=== PATIENT | female | born 1950 | race Caucasian/White ===

== ENCOUNTER 2024-01-15 17:32 | Inpatient (IN) | payer MEDICARE, SELFPAY ==
[2024-01-15] VITALS (8 sets, daily range): BP systolic 92–171; BP diastolic 62–97; PULSE 96–131; RESP 14–19; TEMP 36.5–36.9; O2SAT 93–96; BMI 29.5; BMI 25.9
--- NOTE | 2024-01-15 18:03 | CT_ITS ---
PROCEDURE INFORMATION: Exam: CT Head Without Contrast Exam date and time: 01/15/2024 6:19 PM Age: 73 years old Clinical indication: Altered mental status/memory loss; Additional info: AMS, no focal deficits TECHNIQUE: Imaging protocol: Computed tomography of the head without contrast. Radiation optimization: All CT scans at this facility use at least one of these dose optimization techniques: automated exposure control; mA and/or kV adjustment per patient size (includes targeted exams where dose is matched to clinical indication); or iterative reconstruction. COMPARISON: No relevant prior studies available. FINDINGS: Brain: Moderate generalized cerebral atrophy. Diffuse periventricular white matter hypoattenuation compatible with chronic microvascular ischemic changes. No intracranial mass, hemorrhage or evidence of acute ischemia. Cerebral ventricles: Mild ventriculomegaly appears in proportion to the degree of cerebral atrophy. Ventricles appear clear. Paranasal sinuses: Visualized sinuses are unremarkable. No fluid levels. Mastoid air cells: Visualized mastoid air cells are well aerated. Bones/joints: Unremarkable. No acute fracture. Soft tissues: Unremarkable. IMPRESSION: No acute intracranial abnormality evident. Chronic appearing changes as noted
--- NOTE | 2024-01-15 18:06 | ED_ITS ---
Discharge Plan Disposition Chief Complaint: PAIN Referrals Follow up/Referrals: Provider,Referral, [Primary Care Provider] - See instructions Clinical Impressions Clinical Impression: Altered mental status, Urinary incontinence, Skin ulcer of buttock, limited to breakdown of skin, Elevated lipase, Debility, Acute UTI, Calcification of coronary artery Discharge ED Provider: Zuleyka Hawley General Adult HPI General Chief complaint: PAIN Stated complaint: Pressure sores Time Seen by Provider: 01/15/24 17:36 History of Present Illness HPI narrative: This patient is a 73-year-old female with unknown past medical history at this time presenting with concern that family found her living in deplorable conditions. According to [facility] who brought the patient in, the patient has been reportedly living in a camper without running water or electricity for the last 5 months. Family came and found her stuck to the blankets that she was lying on in bed with a lot of wounds to her buttocks and perineal region. She had been incontinent of urine on herself. Patient does not contribute much to history, as she is altered. She is only oriented to person and place but not time or situation. She states that she is having some pain in her butt where the wounds are but denies any other concerns or complaints at this time. She states she is not really sure why she is here. Family has not yet arrived. Related Data Allergies Allergy/AdvReac Type Severity Reaction Status Date / Time Unable to Assess Allergy Verified 01/15/24 18:26 [facility] Disclaimer: The information contained in this section may have been updated after the patient was seen, as this information can be updated by other users. Medical History Dementia Polio Diabetes mellitus, type 2 Social History Smoking Status: Never smoker alcohol intake: never current occupational status: retired Travel in the last 8 weeks: None ROS Obtained: Yes All systems reviewed & no additional complaints except as documented Physical Exam General General appearance: alert and in no apparent distress Comment: Wrapped in multiple blankets that are seemingly stuck to open wounds on her gluteal region. Blankets are soaked in urine. Hair appears unwashed for a long period of time Head Head exam: atraumatic and normocephalic Eye Eye exam: Present normal appearance, PERRL and EOMI ENT ENT exam: Present normal exam, normal oropharynx, mucous membranes moist and normal external ear exam Neck Neck exam: Present normal inspection, full ROM and trachea midline; Absent tenderness Chest Chest inspection: Present normal inspection and symmetric chest wall rise; Absent tenderness Respiratory Respiratory exam: Present normal lung sounds bilaterally; Absent respiratory distress, wheezes, stridor or accessory muscle use Cardiovascular Cardiovascular exam: Present normal rhythm and tachycardia Abdominal Exam Abdominal exam: Present tenderness (Suprapubic) and other (Palpable bladder distention with tenderness of the bladder in the suprapubic region); Absent distention or guarding Extremities Exam Extremities exam: Present normal inspection, full ROM and normal capillary refill; Absent tenderness or edema Back Exam Back exam: Present full ROM and other (Extensive wounds and skin breakdown to the gluteal region. Patient has active areas of oozing blood from raw, irritated skin that was stuck to the blankets she was lying on. Contact irritation noted as well as stage 1 decubitus wound.); Absent tenderness Neurological Exam Neurological exam: Present alert, CN II-XII intact, normal gait and other (Generally weak without obvious focal deficit); Absent oriented X3 Psychiatric Psychiatric exam: Present flat affect Skin Skin exam: Present warm and dry Medical Decision Making Medical Records Medical records reviewed: Yes I reviewed the patient's medical records. Nikolai Inquiry Pt receiving controlled substance: No Vital Signs: 01/15/24 17:34 01/15/24 18:31 Temperature 98.2 F Temperature Source Oral Pulse Rate 131 H Pulse Rate [Left Radial] 130 H Respiratory Rate 18 Blood Pressure 92/74 L Blood Pressure [Right Arm] 171/97 H Blood Pressure Mean [Right Arm] 121 Blood Pressure Source [Right Arm] Automatic Cuff Blood Pressure Position [Right Arm] Sitting 02 Sat by Pulse Oximetry 95 96 Oxygen Delivery Method Room Air Room Air Lab Data Lab results reviewed: Yes I reviewed the patient's lab results. Lab Results 01/15/24 18:03: Urine Color Yellow, Urine Appearance Cloudy, Urine pH 6.0, Ur Specific [place] 1.015, Urine Protein 1+, Urine Glucose (UA) Negative, Urine Ketones Negative, Urine Blood 2+, Urine Nitrate Negative, Urine Bilirubin Negative, Urine Urobilinogen 0.2, Ur Leukocyte Esterase 2+ A, Urine RBC 3-5, Urine WBC Tntc, Ur Squamous Epith Cells None, Urine Bacteria Trace 01/15/24 18:13: WBC 16.2 H, RBC 5.63 H, Hgb 16.3 H, Hct 50.8 H, MCV 90.1, MCH 28.9, MCHC 32.1, RDW 13.2, Plt Count 527 H, MPV 8.2, Neut % (Auto) 83.0 H, Lymph % (Auto) 11.1, [place] % (Auto) 3.0, Eos % (Auto) 1.2, Baso % (Auto) 1.6, Neut # (Auto) 13.4 H, Lymph # (Auto) 1.8, [place] # (Auto) 0.5, Eos # (Auto) 0.2, Baso # (Auto) 0.3 H, Total Counted 100, Neutrophils % (Manual) 79 H, Lymphocytes % (Manual) 16, Monocytes % (Manual) 4, Eosinophils % (Manual) 1, Platelet Estimate Slight increase, RBC Morphology Normal, D-Dimer 2.14 H, Sodium 135 L, Potassium 3.4 L, Chloride 96 L, Carbon Dioxide 26, Anion Gap 16.4 H, BUN 30 H, Creatinine 1.00, Estimated Creat Clear 48, Estimated GFR 55 L, Est GFR ( Amer) 66, G lucose 191 H, Lactate 2.4 H, Calcium 10.0, Total Bilirubin 0.6, AST 47 H, ALT 47, Alkaline Phosphatase 142 H, Total Creatine Kinase 20 L, Troponin I < 0.01, C -Reactive Protein 156.8 H, Total Protein 10.2 H, Albumin 3.9, Globulin 6.3 H, A lbumin/Globulin Ratio 0.6 L, Lipase 604 H, Procalcitonin 0.120, TSH 1.30, T hyroxine (T4) 13.2 H 01/15/24 18:15: NT-Pro-B Natriuret Pep 963 H 01/15/24 18:41: VBG pH 7.34, VBG pCO2 48.8, VBG pO2 37.6, VBG HCO3 25.8, VBG Total CO2 27.3 H, VBG O2 Saturation 67.2, VBG Base Excess 0.0, VBG Lactic Acid 3.4 H 01/15/24 19:05: Ur Barbituates Screen Negative, Ur Amphetamines Screen Negative, U Benzodiazepines Scrn Negative 01/15/24 18:13 01/15/24 18:13 Orders (Tests/Meds): ED MEDICATIONS Generic Name Dose Route Start Last Admin Trade Name Freq PRN Reason Stop Dose Admin Lactated Ringer's 1,000 mls @ 999 mls/hr 01/15/24 20:31 Lactated Ringer's 1000 Ml Bag IV 01/15/24 21:31 .Q1H1M ONE Ceftriaxone Sodium 2 gm/ 100 mls @ 200 mls/hr 01/15/24 20:45 Sodium Chloride IV 01/25/24 20:44 Q24H MATILDE Sodium Chloride 10 ml 01/15/24 19:51 01/15/24 19:52 Sodium Chloride 0.9% 10ml Syr (Rad Only) IV 02/14/24 19:50 10 ml NEEDED PRN Administration Maintain IV Site Discontinued Medications Generic Name Dose Route Start Last Admin Trade Name Freq PRN Reason Stop Dose Admin Acetaminophen 1,000 mg 01/15/24 19:02 01/15/24 19:15 Acetaminophen 1,000mg/100ml Vial IV 01/15/24 19:03 1,000 mg ONCE ONE Administration Lactated Ringer's 1,000 mls @ 999 mls/hr 01/15/24 18:08 01/15/24 19:15 Lactated Ringer's 1000 Ml Bag IV 01/15/24 19:08 999 mls/hr .Q1H1M ONE Administration Iopamidol 100 ml 01/15/24 19:51 01/15/24 19:52 Iopamidol-370 (76%);100ml Bottle IV 01/15/24 19:52 100 ml ONCE ONE Administration Ketorolac Tromethamine 15 mg 01/15/24 19:02 01/15/24 19:15 Ketorolac 30mg/Ml Vial IV 01/15/24 19:03 15 mg ONCE ONE Administration Sodium Chloride 50 ml 01/15/24 19:51 01/15/24 19:52 0.9 % Sodium Chloride 50 Ml Vial IV 01/15/24 19:52 50 ml ONCE ONE Administration ORDERS Category Date Time Status CT abdomen pelvis w con Stat Cat Scan 01/15/24 18:[address] angio chest PE protocol Stat Cat Scan 01/15/24 18:[address] head/brain wo con Stat Cat Scan 01/15/24 18:03 Completed CXR --portable [XR chest portable] Stat Exams 01/15/24 18:30 Completed Ammonia Stat Lab 01/15/24 18:03 Ordered BNP [Brain Natriuretic Peptide] Stat Lab 01/15/24 18:15 Completed C-Reactive Protein Stat Lab 01/15/24 18:13 Completed Complete Blood Count Auto Diff Stat Lab 01/15/24 18:13 Completed Comprehensive Metabolic Panel Stat Lab 01/15/24 18:13 Completed Creatine Kinase Stat Lab 01/15/24 18:13 Completed D-Dimer Stat Lab 01/15/24 18:13 Completed Lactic Acid Stat Lab 01/15/24 18:13 Completed Lipase Stat Lab 01/15/24 18:13 Completed Procalcitonin Stat Lab 01/15/24 18:13 Completed T4 (Thyroxine) Stat Lab 01/15/24 18:13 Completed Thyroid Stimulating Hormone Stat Lab 01/15/24 18:13 Completed Troponin I Q3H Lab 01/15/24 21:15 Ordered Troponin I Q3H Lab 01/16/24 00:15 Ordered Troponin I Stat Lab 01/15/24 18:13 Completed UDS [Drug Screen,Urine] Stat Lab 01/15/24 19:05 Results Urinalysis and Microscopic Stat Lab 01/15/24 18:03 Completed Blood Culture Stat Micro 01/15/24 18:15 Received Urine Culture Stat Micro 01/15/24 18:03 Received Venous Blood Gas Stat RT 01/15/24 18:41 Completed ECG Data Tracing #1: I reviewed this ECG and interpreted as documented below: Sinus tachycardia with a ventricular rate of [address]/T wave abnormality, however no acute ST elevations concerning for STEMI. ECG initial impression date: 01/15/24 ECG initial impression time: 18:47 Medical Decision Narrative: In summary, this patient is a 73-year-old female presenting to the Emergency Department for evaluation of gluteal wounds and with concern that she was stuck to the blankets she was lying on. Family found her living in deplorable conditions. Patient is altered and does not contribute much to history. Differential diagnoses considered include but are not limited to urinary tract infection, ELKE, general debility, rhabdomyolysis, renal failure, starvation, electrolyte derangements, among many other things at this time, his differential is very broad. Ruling out the most morbid conditions drove assessment. On exam, the patient is in no acute distress, though she appears disheveled wrapped in many blankets that are soaked in urine and stuck to her buttocks. She has a distended palpable bladder with associated tenderness as well as multiple wounds on her gluteal region and contact irritation/skin breakdown from presumed chronic saturation with urine. Workup included very broad lab evaluation including infectious and metabolic workup. CT scan of the head without contrast, chest x-ray, and EKG were also ordered in addition to this broad lab assessment. Bolus of IV fluids was initiated, as the patient is tachycardic and appears clinically dry on exam. She was given IV Tylenol and Toradol for pain related to her wounds. Family arrives and notes that the patient had been living in another town and they thought that her brother was taking care of her, however they recently found that her brother had not been taking care of her, and instead the patient been living on her own with mom's children next-door coming to check on her occasionally. They noted that they moved the patient down to [place] to be with them on Friday, and they noted that since then, she has been peeing on herself and has been complaining of buttock pain. They today noted for the first time that she has extensive wounds to her gluteal region. Given this, they brought her in for evaluation. They state they are unsure what her baseline is, as they had not been around her for a long time. They also note that they do not know what her medical problems are what medications she takes, as they have been trying to get a hold of pharmacies and her old primary care provider for information. Labs were obtained that were concerning for urinary tract infection, and patient also does have a leukocytosis. She appears clinically dry based on labs with mildly elevated anion gap and CO2. She also has elevated inflammatory markers. At this time, I am concerned for sepsis secondary to urinary tract infection. Sepsis bolus of IV fluids was administered with 2 L bolus of IV fluids. I independently interpreted CT scan prior to the radiologist read and noted grossly distended bladder with hydronephrosis bilaterally despite Montesinos catheter placement. Please see their read for final interpretation. Patient also has coronary calcifications, which were made noted. Lipase is mildly elevated, but she does not have abdominal pain or tenderness. Montesinos catheter was adjusted and flushed with grossly purulent drainage. She had a large chunk of purulent material that was blocking the Montesinos catheter which was able to be removed. After this, she had increased UOP. She initially had only 200cc urine out, but after flushing, she had around 1100cc out. Patient was started on IV Rocephin with concerns for urinary tract infection. At this time, given her complex social situation, wounds, general debility, and significant urinary tract infection, I feel she would benefit from admission for further evaluation and management. I called and had an interactive discussion with the hospitalist who admitted the patient in stable condition. Critical Care Critical Care Time Critical Care Time: No
--- NOTE | 2024-01-15 18:30 | XR_ITS ---
PROCEDURE INFORMATION: Exam: XR Chest Exam date and time: 01/15/2024 6:33 PM Age: 73 years old Clinical indication: Other: AMS TECHNIQUE: Imaging protocol: Radiologic exam of the chest. Views: 1 view. COMPARISON: No relevant prior studies available. FINDINGS: Tubes, catheters and devices: Right-sided neck surgical clips. Lungs: Stigmata of old granulomatous disease. Right lower lung opacities are nonspecific. There is mild architectural distortion of the right lung likely related to chronic scarring. Pleural spaces: Unremarkable. No pleural effusion. No pneumothorax. Heart/Mediastinum: Coronary artery calcifications. Vasculature: Vascular calcifications. Bones/joints: Chronic left clavicular fracture. Old left rib fractures. IMPRESSION: Right lower lung opacities are nonspecific. Please correlate for evidence of atypical infection or aspiration. Recommend 6 week follow-up standing PA and lateral chest radiographs.
[2024-01-15 18:32] LABS: Basophils # 0.3 K/mm3 (0-0.2); Basophils % 1.6 % (0.1-2.0); Eosinophils # 0.2 K/mm3 (0.0-0.4); Eosinophils % 1.2 % (0.1-12.0); Hematocrit 50.8 % (37.0-47.0); Hemoglobin 16.3 g/dL (12.2-16.2); Lymphocytes # 1.8 K/mm3 (0.7-4.5); Lymphocytes % 11.1 % (10-50); MANUAL DIFFERENTIAL MANUAL DIFFERENTIAL (MANUAL DIFF); Mean Corpuscular HGB Conc 32.1 g/dL (31.8-35.4); Mean Corpuscular Hemoglobin 28.9 pg (27.0-31.2); Mean Corpuscular Volume 90.1 fl (81-99); Mean Platelet Volume 8.2 fl (7.4-10.4); Monocytes # 0.5 K/mm3 (0.1-1.0); Neutrophils # 13.4 K/mm3 (1.8-7.8); Platelet Count 527 K/mm3 (142-424); Red Blood Count 5.63 M/mm3 (4.20-5.40); Red Cell Distribution Width 13.2 % (11.5-17.5); White Blood Count 16.2 K/mm3 (4.8-10.8)
[2024-01-15 18:40] LABS: D-Dimer 2.14 ug/mL (0.0-0.5)
--- NOTE | 2024-01-15 18:44 | ECG_ITS ---
APPROVED REPORT Exam: Resting ECG HR:125 bpm ECG Measurements Heart Rate 125 AXES OH 157 P 95 QRSd 82 QRS 51 QT 400 T 74 QTc 474 Conclusion SINUS TACHYCARDIA NONSPECIFIC ST & T-WAVE ABNORMALITY Electronically signed by : CARLEE GRIMES, 01/15/2024 21:51:06
--- NOTE | 2024-01-15 18:53 | CT_ITS ---
PROCEDURE INFORMATION: Exam: CTA Chest With Contrast Exam date and time: 01/15/2024 7:46 PM Age: 73 years old Clinical indication: Abnormal findings; Other: Elevated d-dimer; Additional info: Tachy, elevated d-dimer, AMS TECHNIQUE: Imaging protocol: Computed tomographic angiography of the chest with contrast. Exam focused on the arteries. 3D rendering (Not supervised by radiologist): MIP and/or 3D reconstructed images were created by the technologist. Radiation optimization: All CT scans at this facility use at least one of these dose optimization techniques: automated exposure control; mA and/or kV adjustment per patient size (includes targeted exams where dose is matched to clinical indication); or iterative reconstruction. Contrast material: ISOVUE; Contrast volume: 100 ml; Contrast route: INTRAVENOUS (IV); COMPARISON: CR XR CHEST PORTABLE 15/01/2024 18:33 FINDINGS: Pulmonary arteries: No pulmonary emboli. Great vessels off aortic arch: Abberant right subclavian artery, which is chronically thrombosed. The right subclavian artery reconstitutes due to a patent bypass graft from the right common carotid artery. Aorta: The aorta demonstrates severe atherosclerotic disease. Other arteries: The left vertebral artery is dominant. Lungs: [id number] centrilobular emphysema. Bilateral apical scarring. Mild scarring and atelectasis in the lower lungs. Pleural spaces: Unremarkable. No pneumothorax. No pleural effusion. Heart: Unremarkable. No cardiomegaly. No pericardial effusion. Coronary arteries: Moderate to severe coronary arterial calcification, indicating the presence of coronary artery disease. Lymph nodes: Unremarkable. No enlarged lymph nodes. Bones/joints: Old left rib fractures. Old left clavicular fracture. Soft tissues: Unremarkable. Other findings: Stigmata of old granulomatous disease. Please see separate report for abdomen/pelvis. IMPRESSION: 1. No pulmonary emboli. 2. Moderate to severe coronary arterial calcification, indicating the presence of coronary artery disease. If the patient has associated symptoms, recommend management as per chest pain guidelines. If the patient is asymptomatic, consider reviewing modifiable cardiovascular risk factors and managing as per guidelines for primary prevention. COMMENTS: The presence of pulmonary emphysema on CT is an independent risk factor for lung cancer. In the absence of a history or active diagnosis of lung cancer, it is recommended that this patient with emphysema be evaluated for enrollment in a low dose CT lung cancer screening program.
--- NOTE | 2024-01-15 18:53 | CT_ITS ---
PROCEDURE INFORMATION: Exam: CT Abdomen And Pelvis With Contrast Exam date and time: 01/15/2024 7:46 PM Age: 73 years old Clinical indication: Other: Tachy, elevated d-dimer; Additional info: Tachy, elevated d-dimer, AMS TECHNIQUE: Imaging protocol: Computed tomography of the abdomen and pelvis with contrast. Radiation optimization: All CT scans at this facility use at least one of these dose optimization techniques: automated exposure control; mA and/or kV adjustment per patient size (includes targeted exams where dose is matched to clinical indication); or iterative reconstruction. Contrast material: ISOVUE; Contrast volume: 100 ml; Contrast route: IV; COMPARISON: CT ANGIO CHEST PE PROTOCOL 15/01/2024 19:46 FINDINGS: Tubes, catheters and devices: Urinary bladder is catheterized. There is a relatively large amount of urine in the urinary bladder. There is urinary bladder wall thickening. Liver: Mild fatty infiltration of the liver along the falciform ligament. Gallbladder and bile ducts: Gallbladder is absent. Pancreas: Normal. No ductal dilation. Spleen: Normal. No splenomegaly. Adrenal glands: Normal. No mass. Kidneys and ureters: Low attenuation renal lesions measuring up to 2.5 cm in diameter are incompletely characterized, but are likely cysts. No followup imaging is warranted. Bilateral hydronephrosis extending to the urinary bladder. Stomach and bowel: Mild sigmoid diverticulosis without diverticulitis. Appendix: Unremarkable appendix. Intraperitoneal space: Unremarkable. No free air. No significant fluid collection. Vasculature: Patent right common and external iliac arterial stents. Lymph nodes: Unremarkable. No enlarged lymph nodes. Urinary bladder: See Tubes, catheters and devices finding. Reproductive: Unremarkable as visualized. Bones/joints: Chronic L3 fracture. Soft tissues: Muscles of the right lower extremity are atrophied. Other findings: Please see separate report for CT chest. IMPRESSION: 1. Urinary bladder is catheterized. There is a relatively large amount of urine in the urinary bladder. There is urinary bladder wall thickening. Please exclude infection and confirm that the catheter is functioning properly. 2. Bilateral hydronephrosis extending to the urinary bladder. This could be due to large amount of urine in the bladder, urinary reflux, or ascending urinary tract infection. COMMENTS: Consistent with the [employer]'s Incidental Findings Committee white paper (J Am Soledad Radiol 2018): Any incidental renal lesion less than 1 cm or classified as too small to characterize, or any incidental cystic renal lesion characterized as simple-appearing, is likely benign. No follow-up imaging is recommended for these lesions per consensus recommendations based on imaging criteria.
[2024-01-15 18:56] LABS: Lactate Venous 3.4 mmol/L (0.4-2.0); VBG HCO3 25.8 mmol/L (23-30); VBG Oxygen Saturation 67.2 % (50-70); VBG PCO2 48.8 mmol/L (35-51); VBG PH 7.34 mmol/L (7.31-7.41); VBG PO2 37.6 mmol/L (28-40); VBG Total CO2 27.3 mmol/L (23-27)
[2024-01-15 19:00] LABS: Alanine Aminotransferase 47 U/L (12-78); Albumin Level 3.9 g/dl (3.5-5.0); Albumin/Globulin Ratio 0.6 (1.1-1.8); Alkaline Phosphatase 142 U/L (38-126); Anion Gap 16.4 mEq/L (5-15); Aspartate Amino Transferase 47 U/L (14-36); Bilirubin,Total 0.6 mg/dl (0.2-1.3); Carbon Dioxide 26 mmol/L (22.0-30.0); Chloride 96 mmol/L (98-107); Creatine Kinase 20 U/L (30-135); Globulin 6.3 g/dL (1.3-3.2); Glucose 191 mg/dl (74-100); Lactic Acid 2.4 mmol/L (0.7-2.1); Potassium 3.4 mmoL/L (3.5-5.1); Sodium 135 mmol/L (136-145); Total Protein,Serum 10.2 g/dl (6.3-8.2)
[2024-01-15 19:01] LABS: Lipase 604 U/L (23-300)
--- NOTE | 2024-01-15 19:03 | PC.NURSE ---
reported critical lipase of 604 to Tigist Paez
[2024-01-15 19:05] LABS: C-Reactive Protein 156.8 mg/L (0-4)
[2024-01-15 19:11] LABS: NT Pro Brain Natriuretic Pep. 963 pg/mL (0-125)
--- NOTE | 2024-01-15 19:13 | PC.NURSE ---
per son, the pt recently lived in [place] with her brother in the camper so; they've been trying to get ahold of pharmacies and doctors there to obtain medical hx and medications pt is prescribed. md aware. son states pt has been living with him since friday and he noticed the redness on her bottom today while helping her to the restroom. pt normally uses a walker or wheelchair but he has been packing her. pt has also been incontinent with him. son is unsure of her baseline.
[2024-01-15] MEDS: KETOROLAC 30MG/ML VIAL 15 MG IV (19:15)
[2024-01-15] MEDS: ACETAMINOPHEN 1,000MG/100ML VIAL 1000 MG IV (19:15)
[2024-01-15] MEDS: LACTATED RINGERS 1000ML 1,000 ML 999 ML IV (19:15)
[2024-01-15 19:20] LABS: Microscopic, Urine URINE MICROSCOPIC (MICROSCOPIC)
[2024-01-15 19:30] LABS: Appearance,Urine CLOUDY (Clear); Bilirubin,Urine Negative (Negative); Blood, Urine 2+ (Negative); Color,Urine YELLOW (Yellow); Glucose,Urine (UA) Negative (Negative); Ketones,Urine Negative (Negative); Leukocyte Esterase,Urine 2+ (Negative); Nitrate,Urine Negative (Negative); Protein,Urine 1+ (Negative); Specific Gravity, Urine 1.015 (1.005-1.030); Urobilinogen,Urine 0.2 EU/dl (0.2)
[2024-01-15 19:31] LABS: Blood Urea Nitrogen 30 mg/dl (7-17); Creatinine Clearance Estimated 48 mL/min (50-200); Estimated Glomerular Filt Rate 55 ml/min (>60); GFR (African American) 66 ML/MIN (>60)
[2024-01-15 19:39] LABS: Eosinophils % 1 % (0-3); Lymphocytes % 16 % (10-50); Monocytes % 4 % (2-9); Neutrophils % 79 % (42-76); Platelet Estimate Slight Increase; RBC Morphology Normal; Total Cells Counted 100
[2024-01-15 19:45] LABS: Troponin I < 0.01 ng/ml (0.00-0.034)
[2024-01-15 19:49] LABS: T4 (Thyroxine) 13.2 ug/dl (5.53-11.0)
[2024-01-15] MEDS: SODIUM CHLORIDE 0.9% 10ML SYR (RAD ONLY) 10 ML IV (19:52)
[2024-01-15] MEDS: 0.9 % SODIUM CHLORIDE 50 ML VIAL IV (19:52)
[2024-01-15] MEDS: IOPAMIDOL-370 (76%);100ML BOTTLE 100 ML IV (19:52)
[2024-01-15 20:00] LABS: Bacteria,Urine Trace /lpf; WBC,Urine TNTC #/hpf (0-3)
[2024-01-15 20:02] LABS: Barbiturates Screen,Urine Negative ng/ml (<200)
[2024-01-15 20:03] LABS: Amphetamine/Metha Screen,Urine Negative ng/ml (<1000); Benzodiazepines Screen,Urine Negative ng/ml (<200)
--- NOTE | 2024-01-15 20:38 | PC.NURSE ---
pt's CT showed urine in the bladder even though pt had a zaragoza catheter. Catheter assessed and found to be slightly kinked but when fixed did not have much improvement in output. Catheter was then flushed with sterile water and white, thick urine with large sediment started to flow through the tube; yellow clear urine was in the urine bag. UA obtained per MD order; additional 900 mL of urine now in bag.
--- NOTE | 2024-01-15 20:40 | PC.NURSE ---
called warehouse operator for bed
--- NOTE | 2024-01-15 20:40 | PC.NURSE ---
OBSERVATION ADMISSION TO 210 WITH DX OF UTI, SACRAL WOUND AND WEAKNESS TO SERVICE OF THE HOSPITALIST.
[2024-01-15 20:46] LABS: Opiate Screen,Urine Negative ng/ml (<300)
--- NOTE | 2024-01-15 20:46 | EXP.HP ---
History of Present Illness *Admission Date: 01/15/24 *Reason for visit:: AMS/ UTI *History of present illness: This is a 73-year-old female with apparently PMHx of HTN, CAD on plavix, questionable diabetes, dementia. unknown baseline, at this time was brought in by EMS with concern that was found by family found living in deplorable conditions. patient is alert to person only, poor historian and does not seems to be aware of situations. History obtained by chart review, ED documentation and EMS report. According to [facility] who brought the patient in, the patient has been reportedly living in a camper without running water or electricity for the last 5 months. Family came and found her stuck to the blankets that she was lying on in bed with a lot of wounds to her buttocks and perineal region. She had been incontinent of urine on herself. She is only oriented to person and place but not time or situation. She states that she is having some pain in her bottom where the wounds are but denies any other concerns or complaints at this time. She states she is not really sure why she is here. Family has not yet arrived. Admitted for further treatment and management. [facility] Disclaimer: The information contained in this section may have been updated after the patient was seen, as this information can be updated by other users. Medical History Dementia Polio Diabetes mellitus, type 2 Social History (Updated 01/15/24 @ 20:39 by Zuleyka Hawley DO) Smoking Status: Never smoker alcohol intake: never current occupational status: retired Travel in the last 8 weeks: None Review of Systems Review of Systems Review of systems:: unable to obtain Meds Home Medications and Allergies Home Medications Medication Instructions Recorded Confirmed Type atorvastatin 80 mg tablet 80 mg PO DAILY Cholesterol 01/16/24 01/16/24 History clopidogrel 75 mg tablet 75 mg PO DAILY Platelet Inhibitor 01/16/24 01/16/24 History donepezil 5 mg tablet 5 mg PO HS Memory 01/16/24 01/16/24 History glimepiride 4 mg tablet 4 mg PO BID Diabetes 01/16/24 01/16/24 History isosorbide mononitrate 60 mg 60 mg PO DAILY High Blood Pressure 01/16/24 01/16/24 History tablet,extended release 24 hr losartan 100 mg tablet 100 mg PO DAILY High Blood Pressure 01/16/24 01/16/24 History metoprolol succinate 100 mg 100 mg PO DAILY High Blood Pressure 01/16/24 01/16/24 History tablet,extended release 24 hr New Prescriptions to Start Prescriptions: Allergies Allergy/AdvReac Type Severity Reaction Status Date / Time Unable to Assess Allergy Verified 01/15/24 18:26 Exam Data for Last 24 hours Vital signs and Labs for Last 24 Hours: Temp Pulse Resp BP Pulse Ox O2 Del Method 98.2 F 103 H 19 170/73 H 96 Room Air 01/15/24 17:34 01/15/24 20:30 01/15/24 20:30 01/15/24 20:30 01/15/24 20:30 01/15/24 20:30 Laboratory Results - last 24 hr 01/15/24 18:03: Urine Color Yellow, Urine Appearance Cloudy, Urine pH 6.0, Ur Specific [place] 1.015, Urine Protein 1+, Urine Glucose (UA) Negative, Urine Ketones Negative, Urine Blood 2+, Urine Nitrate Negative, Urine Bilirubin Negative, Urine Urobilinogen 0.2, Ur Leukocyte Esterase 2+ A, Urine RBC 3-5, Urine WBC Tntc, Ur Squamous Epith Cells None, Urine Bacteria Trace 01/15/24 18:13: WBC 16.2 H, RBC 5.63 H, Hgb 16.3 H, Hct 50.8 H, MCV 90.1, MCH 28.9, MCHC 32.1, RDW 13.2, Plt Count 527 H, MPV 8.2, Neut % (Auto) 83.0 H, Lymph % (Auto) 11.1, [place] % (Auto) 3.0, Eos % (Auto) 1.2, Baso % (Auto) 1.6, Neut # (Auto) 13.4 H, Lymph # (Auto) 1.8, [place] # (Auto) 0.5, Eos # (Auto) 0.2, Baso # (Auto) 0.3 H, Total Counted 100, Neutrophils % (Manual) 79 H, Lymphocytes % (Manual) 16, Monocytes % (Manual) 4, Eosinophils % (Manual) 1, Platelet Estimate Slight increase, RBC Morphology Normal, D-Dimer 2.14 H, Sodium 135 L, Potassium 3.4 L, Chloride 96 L, Carbon Dioxide 26, Anion Gap 16.4 H, BUN 30 H, Creatinine 1.00, Estimated Creat Clear 48, Estimated GFR 55 L, Est GFR ( Amer) 66, Glucose 191 H, Lactate 2.4 H, Calcium 10.0, Total Bilirubin 0.6, AST 47 H, ALT 47, Alkaline Phosphatase 142 H, Total Creatine Kinase 20 L, Troponin I < 0.01, C-Reactive Protein 156.8 H, Total Protein 10.2 H, Albumin 3.9, Globulin 6.3 H, Albumin/Globulin Ratio 0.6 L, Lipase 604 H, Procalcitonin 0.120, TSH 1.30, Thyroxine (T4) 13.2 H 01/15/24 18:15: NT-Pro-B Natriuret Pep 963 H 01/15/24 18:41: VBG pH 7.34, VBG pCO2 48.8, VBG pO2 37.6, VBG HCO3 25.8, VBG Total CO2 27.3 H, VBG O2 Saturation 67.2, VBG Base Excess 0.0, VBG Lactic Acid 3.4 H 01/15/24 19:05: Ur Barbituates Screen Negative, Ur Amphetamines Screen Negative, U Benzodiazepines Scrn Negative I & O for Last 24 hours: Intake & Output 01/12/24 01/13/24 01/14/24 01/15/24 23:59 23:59 23:59 23:59 Weight 59.874 kg Constitutional Constitutional: chronically ill appearing and somnolent *Routine HEENT Exam Head: Present normocephalic Eye: Present EOMI and PERRL ENT: Present mucous membranes moist *Routine Neck Exam Neck: Present supple; Absent lymphadenopathy *Routine Respiratory Exam Respiratory: Present decreased breath sounds, CTA bilaterally and symmetric chest movement *Routine Cardiovascular Exam Cardiovascular: Present RRR, Normal S1, Normal S2 and tachycardia *Routine Abdominal Exam Abdominal: Present soft and normoactive bowel sounds; Absent tenderness *Routine Rectal Exam Rectal:: deferred *Routine Genitalia Exam Genitalia:: deferred *Routine Extremities Exam Extremities: Absent cyanosis, clubbing or edema *Routine Skin Exam Skin: Present warm, wounds and rash Comments: sacral pressure/moisture associated wound. *Routine Neurological Exam Neurological: Present alert and altered mental status Routine Psychiatric Exam Psychiatric: Present unable to assess Assessment and Plan *Assessment and plan (1) Sepsis without acute organ dysfunction: Status: Acute Qualifiers: Sepsis type: sepsis due to unspecified organism Qualified Code(s): A41.9 - Sepsis, unspecified organism Category: Medical Code(s): A41.9 - Sepsis, unspecified organism (2) Acute UTI: Status: Acute Category: Medical Code(s): N39.0 - Urinary tract infection, site not specified (3) Altered mental status: Status: Acute Qualifiers: Altered mental status type: disorientation Qualified Code(s): R41.0 - Disorientation, unspecified Category: Medical Code(s): R41.82 - Altered mental status, unspecified (4) Dementia: Status: Acute Qualifiers: Dementia behavioral or psychological symptom: unspecified whether behavioral, psychotic, or mood disturbance or anxiety Dementia severity: unspecified severity Dementia type: unspecified type Qualified Code(s): F03.90 - Unspecified dementia, unspecified severity, without behavioral disturbance, psychotic disturbance, mood disturbance, and anxiety Category: Medical Code(s): F03.90 - Unspecified dementia, unspecified severity, without behavioral disturbance, psychotic disturbance, mood disturbance, and anxiety (5) Dehydration: Status: Acute Category: Medical Code(s): E86.0 - Dehydration (6) Calcification of coronary artery: Status: Acute Category: Medical Code(s): I25.10 - Atherosclerotic heart disease of [place] coronary artery without angina pectoris; I25.84 - Coronary atherosclerosis due to calcified coronary lesion (7) Diabetes mellitus, type 2: Status: Acute Qualifiers: Diabetes mellitus complication status: with other specified complication Diabetes mellitus alf insulin use: without 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 oil 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 use Qualified Code(s): E11.69 - Type 2 diabetes mellitus with other specified complication Category: Medical Code(s): E11.9 - Type 2 diabetes mellitus without complications (8) Dermatitis associated with moisture from urinary incontinence: Status: Acute Category: Medical Code(s): L25.8 - Unspecified contact dermatitis due to other agents; R32 - Unspecified urinary incontinence (9) Skin ulcer of buttock, limited to breakdown of skin: Status: Acute Category: Medical Code(s): L98.411 - 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 unknown baseline, at this time was brought in by EMS with concern that was found by family found living in deplorable conditions. Initial work up included CT of head chest and abdomen. PEs has been ruled out. there is a significant bilateral hydronephrosis. with bladder wall thickness Concerned for UTI. labs are consistent with leukocytosis, reinforcing UTI diagnosis. initial sepsis work up initiated. presenting with pressure/ moisture associated wounds. Findings discussed with ED provider for admission. Medicine decided to admit for further management. Plan as follow: -Sepsis without acute organ dysfunction, secondary to urinary tract infection with bilateral hydronephrosis: Admit patient for medical services. Dispo MedSurg Start continuous monitoring per unit. Vital signs per unit protocol Started on ceftriaxone IV 1 g every 24. Urinary culture pending CT of the abdomen reviewed Monitor labs -Monitor mental status, in the setting of history of dementia, unknown baseline, Dehydration: Continue IV resuscitation. Monitor for electrolyte imbalance Potassium replaced by protocol Monitor CMP in the morning Keep n.p.o.. Advance diet as mentation improves. Nursing to assess bedside swallow -Calcification of the coronary artery disease present on the CTA Patient asymptomatic. Being on Plavix by medical chart review D-dimer elevated. Presumed not been taking medication Resume home medication Continue to monitor Troponin are negative EKGs reviewed. Nonspecific ST changes Resume atorvastatin -Apparently history of diabetes: Obtain A1c over the morning Accu-Chek before meals and as needed On insulin sliding scale Hypertension: Resume Metroprolol, isosorbide. 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 Personally examined and interviewed patient. Agree with exam findings and care plan as documented.
[2024-01-15 20:48] LABS: Methadone Screen,Urine Negative ng/ml (<300); Phencyclidine Screen,Urine Negative ng/ml (<25)
[2024-01-15] MEDS: CEFTRIAXONE SODIUM 2 GM in 0.9 % SODIUM CHLORIDE 100 ML IV (20:52)
--- NOTE | 2024-01-15 21:23 | PC.NURSE ---
report called to 2nd floor nurse
[2024-01-15 21:27] LABS: Ammonia < 9 umol/L (9-30)
[2024-01-15 21:40] LABS: Cannabinoid Screen,Urine Negative ng/ml (<50)
[2024-01-15 21:43] LABS: Cocaine Screen,Urine Negative ng/ml (<300)
--- NOTE | 2024-01-15 21:56 | PC.NURSE ---
Patient arrived to floor via stretcher from ED at 21:47.
[2024-01-15 21:57] LABS: Troponin I < 0.01 ng/ml (0.00-0.034)
[2024-01-15 22:57] LABS: Reflex Lactic Add Lactic Reflex
[2024-01-15 23:19] LABS: Lactic Acid Follow Up (RFLX 1) 1.6 mmol/L (0.7-2.1)
[2024-01-15] MEDS: PANTOPRAZOLE 40MG TABLET 40 MG PO (23:19)
[2024-01-15] MEDS: ACETAMINOPHEN 325MG TAB 650 MG PO (23:19)
[2024-01-15] MEDS: 0.9 % SODIUM CHLORIDE 1000ML 1,000 ML 50 ML IV (23:20)
[2024-01-16] VITALS: BP 111/65; PULSE 99; RESP 16; TEMP 36.9; O2SAT 95
[2024-01-16 00:48] LABS: Troponin I 0.02 ng/ml (0.00-0.034)
[2024-01-16 04:00] VITALS: BP 152/80; PULSE 84; RESP 16; TEMP 36.9; O2SAT 93; BMI 26.4
[2024-01-16] MEDS: MORPHINE 2MG/ML SYRINGE 2 MG IV ×3 (04:09→13:06)
[2024-01-16] MEDS: POTASSIUM CHLORIDE 20MEQ TAB 40 MEQ PO ×3 (06:31→20:42)
[2024-01-16] MEDS: ACETAMINOPHEN 325MG TAB 650 MG PO ×2 (06:31→13:06)
[2024-01-16 07:01] LABS: POC Glucose,Bedside 128 (70-110)
[2024-01-16 07:12] LABS: Basophils # 0.1 K/mm3 (0-0.2); Eosinophils # 0.2 K/mm3 (0.0-0.4); Hematocrit 41.6 % (37.0-47.0); Mean Corpuscular Volume 90.7 fl (81-99); Monocytes # 0.5 K/mm3 (0.1-1.0); Red Blood Count 4.59 M/mm3 (4.20-5.40)
[2024-01-16 07:14] LABS: Alanine Aminotransferase 30 U/L (12-78); Albumin/Globulin Ratio 0.6 (1.1-1.8); Alkaline Phosphatase 115 U/L (38-126); Anion Gap 10.1 mEq/L (5-15); Aspartate Amino Transferase 36 U/L (14-36); Bilirubin,Total 0.5 mg/dl (0.2-1.3); Blood Urea Nitrogen 24 mg/dl (7-17); Calcium 8.9 mg/dl (8.4-10.2); Carbon Dioxide 28 mmol/L (22.0-30.0); Chloride 101 mmol/L (98-107); Creatinine Clearance Estimated 39 mL/min (50-200); Estimated Glomerular Filt Rate 49 ml/min (>60); GFR (African American) 59 ML/MIN (>60); Globulin 4.7 g/dL (1.3-3.2); Glucose 135 mg/dl (74-100); Magnesium 1.5 mg/dl (1.6-2.3); Potassium 3.1 mmoL/L (3.5-5.1); Sodium 136 mmol/L (136-145); Total Protein,Serum 7.7 g/dl (6.3-8.2)
[2024-01-16 07:20] LABS: Basophils % 1.1 % (0.1-2.0); Eosinophils % 2.4 % (0.1-12.0); Lymphocytes % 19.7 % (10-50); Mean Corpuscular HGB Conc 31.9 g/dL (31.8-35.4); Mean Corpuscular Hemoglobin 28.9 pg (27.0-31.2); Mean Platelet Volume 8.2 fl (7.4-10.4); Monocytes % 5.1 % (1.7-9.3); Neutrophils # 7.1 K/mm3 (1.8-7.8); Neutrophils % 71.7 % (37.0-80.0); Platelet Count 423 K/mm3 (142-424); Red Cell Distribution Width 13.1 % (11.5-17.5); White Blood Count 9.9 K/mm3 (4.8-10.8)
[2024-01-16 07:24] LABS: Hemoglobin 13.3 g/dL (12.2-16.2)
--- NOTE | 2024-01-16 07:30 | PC.NURSE ---
Railroad Signal Operator spoke to Saúl WASSERMAN in regards to patients Diet order. Patient is currently NPO. Saúl CREATIVE SERVICES DIRECTOR said to advance as tolerated. Railroad Signal Operator did a bedside swallow eval. Patient was able to drink some diet pepsi and a few potato chips with no problem noted.
--- NOTE | 2024-01-16 07:39 | HMH.PHAINT1 ---
Pharmacy Intervention Comments: MEDICATION RECONCILIATION COMPLETED ON PATIENT USING EXTERNAL FILL HISTORY FROM PHARMACY. -IVETT MOSER, BRANDEND
--- NOTE | 2024-01-16 07:54 | PC.NURSE ---
Patient arrived to unit in a stretcher. Patient noted with some confusion. Patient is able to state her name and where she is. She can't answer alot of the questions, family will be in tomorrow. Machine Operator Farmworker oriented patient to room, educated patient on use of call button with a verbal voice of understanding. Full Assessment to follow.
[2024-01-16 08:00] VITALS: BP 159/70; PULSE 95; RESP 17; TEMP 36.4; O2SAT 97
[2024-01-16] MEDS: METOPROLOL SUCCINATE XL 100MG TABLET 100 MG PO (08:54)
[2024-01-16] MEDS: PANTOPRAZOLE 40MG TABLET 40 MG PO (08:54)
[2024-01-16] MEDS: ISOSORBIDE MONO 60MG TAB.ER.24H 60 MG PO (08:54)
[2024-01-16] MEDS: CLOPIDOGREL 75MG TAB 75 MG PO (08:54)
[2024-01-16] MEDS: MAGNESIUM OXIDE 400MG TABLET 400 MG PO (08:54)
[2024-01-16] MEDS: MAGNESIUM SULFATE IN WATER 2 GM/50 ML PIGGYBACK IV (08:55)
[2024-01-16 08:56] LABS: Hemoglobin A1C 9.4 % (4.0-6.0)
--- NOTE | 2024-01-16 09:43 | SW/DCPLANNER ---
Addendum entered by Idania Wilson 01/19/24 11:27: [facility] for report: phone number [phone] fax number [phone] Addendum entered by Idania Wilson 01/19/24 07:36: Per Bailey w/ [facility] this patient has been approved SNF level of care. Addendum entered by Jenny Regalado RN 01/16/24 17:08: Patient has been accepted by [facility] and pre-cert has been started per Monserrat. Original Note: I received a referral for this patient regarding discharge planning. Patient resides in a camper in [facility], brother lives nearby and checks on her daily and patient stated that she does have running water and electricity. PT/OT/wound care evaluated patient and recommended SNF level of care at time of discharge. After a lengthy discussion w/ patient she is agreeable to placement. Patient is agreeable for information to be faxed to the following facilities: [facility], [facility] and [facility]. Patient stated that she was previously independent and her plan is to return back home w/family after SNF level of care. Patient was alert/oriented and able to answer all questions appropriately. Discharge date is unknown at this time.
--- NOTE | 2024-01-16 09:45 | HMH.OTEV ---
OT Inpatient Evaluation Rehab OT IP Evaluation Start: 01/15/24 20:43 Freq: ONCE Status: Active Protocol: Document 01/16/24 09:39 LAVERNTOWNLEY (Rec: 01/16/24 09:45 [facility] [id number]) Rehab OT IP Assessment Subjective History Pt oriented x 3 on arrival. Pt agreeable to engage in therapy evaluation. Pt admitted on 01/15/24 for UTI, sacral wound, and weakness. History and physical: This is a 73-year-old female with apparently PMHx of HTN, CAD on plavix, questionable diabetes, dementia. unknown baseline, at this time was brought in by EMS with concern that was found by family found living in deplorable conditions. patient is alert to person only, poor historian and does not seems to be aware of situations. History obtained by chart review, ED documentation and EMS report. According to [facility] who brought the patient in , the patient has been reportedly living in a camper without running water or electricity for the last 5 months. Family came and found her stuck to the blankets that she was lying on in bed with a lot of wounds to her buttocks and perineal region. She had been incontinent of urine on herself. She is only oriented to person and place but not time or situation. She states that she is having some pain in her bottom where the wounds are but denies any other concerns or complaints at this time. She states she is not really sure why she is here. Family has not yet arrived. Admitted for further treatment and management Subjective I lived alone. Pt claims prior to being in the hospital she was living alone in a trailer and she was independent with all ADLs and IADLS. However, given the state she is currently in and how she was found by family this information is not trustworthy. She reprots using a cane during functional transfers. Objective Patient Orientation Person,Place,Birthday Right Upper Extremity Gross ROM Min Limitation <25% Left Upper Extremity Gross ROM Min Limitation <25% Shoulder ROM Limitations Muscle Weakness Elbow ROM Limitations Muscle Weakness Wrist Limitations of Range of Motion Muscle Weakness Bed Mobility bed mobility-scooting,bed mobility - supine/sit,bed mobility - rolling Assist Level Moderate x 2 (50% assist) Transfer Training Sit/Stand Transfer Assist Level Maximum x 2 (75% assist) Rehab OT IP prob,goals,plan Problems Date of Evaluation: 01/16/24 OT IP Problems Bed Mobility,Transfers,Balance ,Self care,Safety Rehab Potential Rehab Potential Good Equipment Needs Assistive Devices Rolling / Wheeled Walker Plan OT intervention Plan Bed Mobility,Transfers,Balance ,Self care,Safety,Therapeutic Exercise OT Plan Frequency Daily Duration LOS Discharge Goals Bed Mobility Ability Assistance x1 Sit to Stand Chair Transfer Ability Maximum x 1 (75% assist) Chair Transfer Ability Maximum x 1 (75% assist) Chair Transfer Technique Sit to/from Ambulatory Chair Transfer Assistive Devices Rolling Walker Feeding Ability Assist with Tray Set Up Lower Body Dressing Ability Maximum Assistance Upper Body Dressing Ability Minimal Assistance Bathing Ability Maximum Assistance Performing Toilet Hygiene Ability Maximum Assistance Overall Commode/Toilet Transfer Ability Maximum Assistance Commode/Toilet Transfer Technique Sit to/from Ambulatory Commode/Toilet Transfer Assistive Raised Toilet Seat,Grab Bars Devices Oral Care Assist Minimal Assistance Decrease in Endurance Yes Discharge Plan OT Discharge Plan Pt will continue to be seen for OT services while at [facility]. Pt would benefit most from short term rehab at SNF following hospital stay. Continued skilled therapy is important in order for patient to improve strength, safety, endurance, ADL independence, and functional transfers to reach [facility]. Eval Complexity Eval Charge Codes 14243 - Moderate Complexity PHYSICIAN CERTIFICATION: I certify the specified therapy services for Afshan Zaman are required, authorized, and reviewed every 30 days.
--- NOTE | 2024-01-16 09:49 | HMH.PTEV ---
Physical Therapy Evaluation Rehab PT IP Evaluation Start: 01/15/24 20:43 Freq: ONCE Status: Active Protocol: Document 01/16/24 09:39 DARIEL (Rec: 01/16/24 09:48 DARIEL [id number]) Subjective/History History History Per H&P: This is a 73-year-old female with apparently PMHx of HTN, CAD on plavix, questionable diabetes, dementia. unknown baseline, at this time was brought in by EMS with concern that was found by family found living in deplorable conditions. patient is alert to person only, poor historian and does not seems to be aware of situations. History obtained by chart review, ED documentation and EMS report. According to [facility] who brought the patient in , the patient has been reportedly living in a camper without running water or electricity for the last 5 months. Family came and found her stuck to the blankets that she was lying on in bed with a lot of wounds to her buttocks and perineal region. She had been incontinent of urine on herself. She is only oriented to person and place but not time or situation. She states that she is having some pain in her bottom where the wounds are but denies any other concerns or complaints at this time. She states she is not really sure why she is here. Family has not yet arrived. Admitted for further treatment and management. Subjective Subjective PLOF per pt report: Lives alone in trailer. IND with ADLs and mobility with intermittent use of cane. Driving short distances. New diagnosis of cancer in past 12 No months? Rehab PT IP Eval Objective Appearance Patient Behavior Appropriate Patient Orientation Person,Place Difficulty following instructions none Speech Pattern Clear Ambulation Patient Able to Ambulate No Balance Ability to Arise Unable Transfers Bed Transfer Ability Moderate x 2 (50% assist) Sit to Stand Bed Transfer Ability Maximum x 1 (75% assist) Rehab PT IP prob,goals,plan Problems Date of Evaluation: 01/16/24 PT IP Problems Bed Mobility,Transfers,Gait, Balance,Self care,Safety Rehab Potential Rehab Potential Good Equipment Needs Assistive Devices None / NA Plan PT Intervention Plan Bed Mobility,Transfers,Gait, Balance,Safety,Therapeutic Exercise Other Intervention Plan 1-2 times PT Plan Frequency Daily Duration LOS Discharge Goals Bed Transfer Ability Minimal x 1 (25% assist) Sit to Stand Chair Transfer Ability Moderate x 1 (50% assist) Discharge Plan PT Discharge Plan Pt not safe to return home at this time d/t current level of functional mobility. PT recommending short-term rehabilitation stay upon d/c from [facility]. Pt would benefit from skilled PT while at [facility] to prevent further functional decline and maximize safety with mobility. Eval Complexity Eval Charge Codes 78062 - Moderate Complexity PHYSICIAN CERTIFICATION: I certify the specified therapy services for Afshan Zaman are required, authorized, and reviewed every 30 days.
--- NOTE | 2024-01-16 10:15 | HMH.PTWOUND ---
Rehab Inpt Wound Evaluation Rehab IP Wound Evaluation Start: 01/15/24 20:43 Freq: ONCE Status: Complete Protocol: Document 01/16/24 09:52 LEENA (Rec: 01/16/24 10:02 LEENA [id number]) Rehab PT Wound Assessment Subjective Subjective 73 yowf adm to [facility] with UTI, Sepsis, and weakness. She has PMH of HTN, CAD on plavix, questionable diabetes, dementia. unknown baseline. She was found by family in bed for an extended period of time, incontinent of urine, and with no running water or electricity. She presents with significant buttock and B post LE skin irritation upon adm. Wound Buttock Wound Type MASD with pressure injury Is This a Chronic Wound Yes Wound Staging Stage II Query Text:Stage I - Unbroken, red skin, no blanching. Stage II - Skin broken, superficial skin loss involving epidermis alone or also dermis. Partial loss of skin layers. Stage III - Pressure area involves epidermis, dermis and subcutaneous tissue, full thickness skin loss. Stage IV - Pressure area involves epidermis, subcutaneous tissue, bone and other supportive tissue. Full thickness skin loss with extensive destruction of underlying tissue and structures. Wound Length (cm) 10.0 Wound Width (cm) 3.0 Wound Depth (cm) 0.1 Wound Bed Appearance [place] Surrounding Tissue Appearance Bright Red Wound Drainage Description Serous Drainage Amount Scant Wound Topical Solution/Irrigant Saline Irrigant Dressing Change Patient Tolerance Tolerated Well Plan/Recommendation Comment Currently all wounds are indistinct in nature and best course of action is to treat with a barrier cream to prevent further skin irritation. [facility] staff is performing proper pressure reluef currently. Eval Complexity Eval Charge Codes 63586 - High Complexity PHYSICIAN CERTIFICATION: I certify the specified therapy services for Afshan Zaman are required, authorized, and reviewed every 30 days.
[2024-01-16] MEDS: humaLOG 100 UNITS/ML 3ML VIAL (SSI) SQ ×2 (10:17→20:42)
[2024-01-16] MEDS: ONDANSETRON 4MG/2ML VIAL 4 MG IV (10:33)
--- NOTE | 2024-01-16 10:33 | PC.NURSE ---
emesis times one and zofran given.
[2024-01-16 10:50] LABS: POC Glucose,Bedside 233 (70-110)
[2024-01-16] MEDS: IRBESARTAN 150MG TAB 150 MG PO (13:03)
[2024-01-16 13:21] VITALS: BMI 26.4
--- NOTE | 2024-01-16 15:23 | P.PN_ITS ---
Subjective *Date: 01/16/24 *Time: 15:23 Interval history: Patient more oriented this morning. At baseline mentation. Afebrile overnight. Working with therapy. Showing response to antibiotics and improvement clinically. No nausea or vomiting. Tolerating p.o. intake. Medical Exam Vital signs and Labs for Last 24 Hours: Vital Signs Temp Pulse Pulse Resp BP BP Pulse Ox 01/16/24 14:10 01/16/24 13:16 01/16/24 12:29 01/16/24 09:42 01/16/24 09:00 01/16/24 08:00 97.5 F L 95 H 17 159/70 H 97 01/16/24 07:00 01/16/24 05:00 01/16/24 04:00 98.4 F 84 16 152/80 H 93 L 01/16/24 03:00 01/16/24 01:00 01/16/24 00:00 98.4 F 99 H 16 111/65 95 01/15/24 23:00 01/15/24 22:00 97.7 F 105 H 18 156/76 H 93 L 01/15/24 21:28 98.4 F 96 H 18 164/62 H 01/15/24 20:30 103 H 19 170/73 H 96 01/15/24 20:00 106 H 18 159/76 H 96 01/15/24 19:30 126 H 16 143/70 H 96 01/15/24 19:01 131 H 14 145/92 H 95 01/15/24 18:31 131 H 92/74 L 96 01/15/24 17:34 98.2 F 130 H 18 171/97 H 95 O2 Del Method 01/16/24 14:10 Room Air 01/16/24 13:16 Room Air 01/16/24 12:29 Room Air 01/16/24 09:42 Room Air 01/16/24 09:00 Room Air 01/16/24 08:00 Room Air 01/16/24 07:00 Room Air 01/16/24 05:00 Room Air 01/16/24 04:00 Room Air 01/16/24 03:00 Room Air 01/16/24 01:00 Room Air 01/16/24 00:00 Room Air 01/15/24 23:00 Room Air 01/15/24 22:00 Room Air 01/15/24 21:28 Room Air 01/15/24 20:30 Room Air 01/15/24 20:00 Room Air 01/15/24 19:30 Room Air 01/15/24 19:01 Room Air 01/15/24 18:31 Room Air 01/15/24 17:34 Room Air Intake and Output 01/15/24 01/16/24 01/16/24 23:59 07:59 15:59 Intake Total 0 / 1010 1010 / 1010 Output Total 1200 / 1800 900 / 900 0 / 900 Balance -1200 / -1800 -900 / 110 1010 / 110 Intake: Intake, Oral Amount 0 / 960 960 / 960 Intake, Total IV Amount 50 / 50 Magnesium Sulfate in Water 2 gm 50 / 50 In 50 ml @ 50 mls/hr IV ONCE ONE Rx#:[id number] Output: Output, Urine Amount 1200 / 1200 300 / 300 0 / 300 Output, Urine Amount (Catheter) 600 / 600 Montesinos 600 / 600 Other: Number of Voids 0 Number of Unmeasured Voids 0 0 Weight 52.345 kg 53.4 kg 53.4 kg Patient Weight 01/16/24 23:59 Weight 53.4 kg Laboratory Results - last 24 hr 01/15/24 18:03: Urine Color Yellow, Urine Appearance Cloudy, Urine pH 6.0, Ur Specific [place] 1.015, Urine Protein 1+, Urine Glucose (UA) Negative, Urine Ketones Negative, Urine Blood 2+, Urine Nitrate Negative, Urine Bilirubin Negative, Urine Urobilinogen 0.2, Ur Leukocyte Esterase 2+ A, Urine RBC 3-5, Urine WBC Tntc, Ur Squamous Epith Cells None, Urine Bacteria Trace 01/15/24 18:13: WBC 16.2 H, RBC 5.63 H, Hgb 16.3 H, Hct 50.8 H, MCV 90.1, MCH 28.9, MCHC 32.1, RDW 13.2, Plt Count 527 H, MPV 8.2, Neut % (Auto) 83.0 H, Lymph % (Auto) 11.1, [place] % (Auto) 3.0, Eos % (Auto) 1.2, Baso % (Auto) 1.6, Neut # (Auto) 13.4 H, Lymph # (Auto) 1.8, [place] # (Auto) 0.5, Eos # (Auto) 0.2, Baso # (Auto) 0.3 H, Total Counted 100, Neutrophils % (Manual) 79 H, Lymphocytes % (Manual) 16, Monocytes % (Manual) 4, Eosinophils % (Manual) 1, Platelet Estimate Slight increase, RBC Morphology Normal, D-Dimer 2.14 H, Sodium 135 L, Potassium 3.4 L, Chloride 96 L, Carbon Dioxide 26, Anion Gap 16.4 H, BUN 30 H, Creatinine 1.00, Estimated Creat Clear 48, Estimated GFR 55 L, Est GFR ( Amer) 66, Glucose 191 H, Lactate 2.4 H, Calcium 10.0, Total Bilirubin 0.6, AST 47 H, ALT 47, Alkaline Phosphatase 142 H, Total Creatine Kinase 20 L, Troponin I < 0.01, C-Reactive Protein 156.8 H, Total Protein 10.2 H, Albumin 3.9, Globulin 6.3 H, Albumin/Globulin Ratio 0.6 L, Lipase 604 H, Procalcitonin 0.120, TSH 1.30, Thyroxine (T4) 13.2 H 01/15/24 18:15: NT-Pro-B Natriuret Pep 963 H 01/15/24 18:41: VBG pH 7.34, VBG pCO2 48.8, VBG pO2 37.6, VBG HCO3 25.8, VBG Total CO2 27.3 H, VBG O2 Saturation 67.2, VBG Base Excess 0.0, VBG Lactic Acid 3.4 H 01/15/24 19:05: Urine Opiates Screen Negative, Urine Methadone Screen Negative, Ur Barbituates Screen Negative, Ur Phencyclidine Scrn Negative, Ur Amphetamines Screen Negative, U Benzodiazepines Scrn Negative, Urine Cocaine Screen Negative, U Marijuana (THC) Screen Negative 01/15/24 21:10: Ammonia < 9 L, Troponin I < 0.01 01/15/24 22:54: Lactate 1.6 01/16/24 00:15: Troponin I 0.02 01/16/24 06:30: WBC 9.9 D, RBC 4.59, Hgb 13.3 D, Hct 41.6, MCV 90.7, MCH 28.9, MCHC 31.9, RDW 13.1, Plt Count 423, MPV 8.2, Neut % (Auto) 71.7, Lymph % (Auto) 19.7, [place] % (Auto) 5.1, Eos % (Auto) 2.4, Baso % (Auto) 1.1, Neut # (Auto) 7.1, Lymph # (Auto) 2.0, [place] # (Auto) 0.5, Eos # (Auto) 0.2, Baso # (Auto) 0.1, Sodium 136, Potassium 3.1 L, Chloride 101, Carbon Dioxide 28, Anion Gap 10.1, BUN 24 H, Creatinine 1.10 H, Estimated Creat Clear 39, Estimated GFR 49 L, Est GFR ( Amer) 59, Glucose 135 H D, Hemoglobin A1c 9.4 H, Calcium 8.9, Magnesium 1.5 L, Total Bilirubin 0.5, AST 36, ALT 30 D, Alkaline Phosphatase 115, Total Protein 7.7, Albumin 3.0 L D, Globulin 4.7 H, Albumin/Globulin Ratio 0.6 L 01/16/24 06:35: POC Glucose 128 H 01/16/24 10:05: POC Glucose 233 H I & O for Labs for Last 24 Hours: Intake & Output 01/13/24 01/14/24 01/15/24 01/16/24 23:59 23:59 23:59 23:59 Intake Total 1010 / 1010 Output Total 1200 / 1800 900 / 900 Balance -1200 / -1800 110 / 110 Weight 52.345 kg 53.4 kg Constitutional: Present no acute distress, average body habitus, chronically ill appearing, disheveled and cooperative Head: Present atraumatic and normocephalic Neck: Present normal inspection Respiratory: Present normal respiratory effort; Absent rhonchi, wheezes or cr ackles Cardiac: Present Reg Rate and Rhythm GI: Present soft and normal bowel sounds; Absent distention or tenderness Comments:: Significant skin irritation on her backside Extremities: Present normal inspection, full ROM and edema (1+) Skin: Present intact, erythema and rash Neuro: Present Grossly Intact, alert, awake, oriented x 3 and moves all extremities Assessment and Plan *Assessment and plan (1) Sepsis without acute organ dysfunction: Status: Acute Qualifiers: Sepsis type: sepsis due to unspecified organism Qualified Code(s): A41.9 - Sepsis, unspecified organism Category: Medical Code(s): A41.9 - Sepsis, unspecified organism (2) Acute UTI: Status: Acute Category: Medical Code(s): N39.0 - Urinary tract infection, site not specified (3) Altered mental status: Status: Acute Qualifiers: Altered mental status type: disorientation Qualified Code(s): R41.0 - Disorientation, unspecified Category: Medical Code(s): R41.82 - Altered mental status, unspecified (4) Dementia: Status: Acute Qualifiers: Dementia type: unspecified type Dementia severity: unspecified severity Dementia behavioral or psychological symptom: unspecified whether behavioral, psychotic, or mood disturbance or anxiety Qualified Code(s): F03.90 - Unspecified dementia, unspecified severity, without behavioral disturbance, psychotic disturbance, mood disturbance, and anxiety Category: Medical Code(s): F03.90 - Unspecified dementia, unspecified severity, without behavioral disturbance, psychotic disturbance, mood disturbance, and anxiety (5) Dehydration: Status: Acute Category: Medical Code(s): E86.0 - Dehydration (6) Calcification of coronary artery: Status: Acute Category: Medical Code(s): I25.10 - Atherosclerotic heart disease of [place] coronary artery without angina pectoris; I25.84 - Coronary atherosclerosis due to calcified coronary lesion (7) Diabetes mellitus, type 2: Status: Acute 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 care use Diabetes mellitus complication status: with other specified complication Qualified Code(s): E11.69 - Type 2 diabetes mellitus with other specified complication Category: Medical Code(s): E11.9 - Type 2 diabetes mellitus without complications (8) Dermatitis associated with moisture from urinary incontinence: Status: Acute Category: Medical Code(s): L25.8 - Unspecified contact dermatitis due to other agents; R32 - Unspecified urinary incontinence (9) Skin ulcer of buttock, limited to breakdown of skin: Status: Acute Category: Medical Code(s): L98.411 - 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 unknown baseline, at this time was brought in by EMS with concern that was found by family found living in deplorable conditions. Initial work up included CT of head chest and abdomen. PEs has been ruled out. there is a significant bilateral hydronephrosis. with bladder wall thickness Concerned for UTI. labs are consistent with leukocytosis, reinforcing UTI diagnosis. initial sepsis work up initiated. presenting with pressure/ moisture associated wounds. Findings discussed with ED provider for admission. Admitted to medicine for further management. Continues to require inpatient management. Therapy recommending placement. Referred to nursing homes, will need qualifying stay. Anticipate discharge in the coming days. Problems addressed as follows: -Sepsis without acute organ dysfunction, secondary to urinary tract infection with bilateral hydronephrosis: Continue ceftriaxone IV 1 g every 24 hours Urine culture pending Heart rate still elevated, remains afebrile this morning, white cell count improved to 9.9. Repeat CBC, CMP, magnesium ordered for the morning. Montesinos in place, will consider removing tomorrow. Potassium low at 3.1. Will replace oral. Giving oral magnesium as well to promote bowel movement and correct low levels. -Calcification of the coronary artery disease present on the CTA -CAD -Hypertension Continue Plavix Continue Lipitor 80 mg nightly, continue irbesartan 150 mg daily, isosorbide 60 mg daily, metoprolol 100 mg daily History of dementia: Continue donepezil 5 mg nightly History of diabetes: -A1c 9.4. Continue sliding scale insulin with fingersticks ACHS. Will need oral regimen at discharge. 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
[2024-01-16 15:32] VITALS: BP 131/60; PULSE 55; RESP 16; TEMP 36.6; O2SAT 94
[2024-01-16] MEDS: 0.9 % SODIUM CHLORIDE 1000ML 1,000 ML 50 ML IV (16:35)
[2024-01-16 16:52] LABS: POC Glucose,Bedside 150 (70-110)
[2024-01-16 19:47] VITALS: BP 109/41; PULSE 67; RESP 18; TEMP 36.6; O2SAT 93
[2024-01-16] MEDS: ATORVASTATIN 40MG TABLET 80 MG PO (20:41)
[2024-01-16] MEDS: DONEPEZIL 5MG TAB 5 MG PO (20:41)
[2024-01-16] MEDS: CEFTRIAXONE SODIUM 2 GM in 0.9 % SODIUM CHLORIDE 100 ML IV (20:41)
[2024-01-16 21:06] LABS: POC Glucose,Bedside 252 (70-110)
[2024-01-17] VITALS: BP 119/49; PULSE 62; RESP 18; TEMP 36.7; O2SAT 93
[2024-01-17 04:00] VITALS: BP 118/66; PULSE 67; RESP 18; O2SAT 92; BMI 29.2
[2024-01-17 07:08] LABS: POC Glucose,Bedside 104 (70-110)
[2024-01-17 08:00] VITALS: BP 166/69; PULSE 77; RESP 18; TEMP 36.6; O2SAT 97
[2024-01-17] MEDS: CLOPIDOGREL 75MG TAB 75 MG PO (08:05)
[2024-01-17] MEDS: METOPROLOL SUCCINATE XL 100MG TABLET 100 MG PO (08:06)
[2024-01-17] MEDS: MAGNESIUM OXIDE 400MG TABLET 400 MG PO (08:06)
[2024-01-17] MEDS: IRBESARTAN 150MG TAB 150 MG PO (08:06)
[2024-01-17] MEDS: PANTOPRAZOLE 40MG TABLET 40 MG PO (08:06)
[2024-01-17] MEDS: ISOSORBIDE MONO 60MG TAB.ER.24H 60 MG PO (08:06)
[2024-01-17] MEDS: POTASSIUM CHLORIDE 20MEQ TAB 40 MEQ PO ×2 (08:14→20:24)
[2024-01-17] MEDS: humaLOG 100 UNITS/ML 3ML VIAL (SSI) SQ ×3 (11:12→20:23)
[2024-01-17 11:20] LABS: POC Glucose,Bedside 214 (70-110)
--- NOTE | 2024-01-17 14:17 | P.PN_ITS ---
Subjective *Date: 01/17/24 *Time: 14:17 Interval history: patient was seen and evaluated at the bedside. No reported acute events overnight, denies chest pain, shortness of breath, nausea, vomiting, abdominal pain. Exam Data for Last 24 hours Vital signs and Labs for Last 24 Hours: Temp Pulse Resp BP Pulse Ox O2 Del Method 97.8 F 77 18 166/69 H 97 Room Air 01/17/24 08:00 01/17/24 08:00 01/17/24 08:00 01/17/24 08:00 01/17/24 08:00 01/17/24 12:43 Laboratory Results - last 24 hr 01/16/24 16:40: POC Glucose 150 H 01/16/24 20:37: POC Glucose 252 H 01/17/24 06:33: POC Glucose 104 01/17/24 11:07: POC Glucose 214 H I & O for Last 24 hours: Intake & Output 01/14/24 01/15/24 01/16/24 01/17/24 23:59 23:59 23:59 23:59 Intake Total 1820 / 1820 1457 / 1457 Output Total 1200 / 1800 900 / 900 1200 / 1200 Balance -1200 / -1800 920 / 920 257 / 257 Weight 52.345 kg 53.4 kg 58.967 kg Constitutional Constitutional: no acute distress *Routine HEENT Exam Head: Present normocephalic Eye: Present EOMI and PERRL ENT: Present mucous membranes moist *Routine Neck Exam Neck: Present supple; Absent lymphadenopathy *Routine Respiratory Exam Respiratory: Present CTA bilaterally *Routine Cardiovascular Exam Cardiovascular: Present RRR *Routine Abdominal Exam Abdominal: Present soft and normoactive bowel sounds; Absent tenderness *Routine Extremities Exam Extremities: Absent cyanosis, clubbing or edema *Routine Skin Exam Skin: Present warm; Absent rash *Routine Neurological Exam Neurological: Present alert and oriented X3 Assessment and Plan *Assessment and plan (1) Sepsis without acute organ dysfunction: Status: Acute Qualifiers: Sepsis type: sepsis due to unspecified organism Qualified Code(s): A41.9 - Sepsis, unspecified organism Category: Medical Code(s): A41.9 - Sepsis, unspecified organism (2) Acute UTI: Status: Acute Category: Medical Code(s): N39.0 - Urinary tract infection, site not specified (3) Altered mental status: Status: Acute Qualifiers: Altered mental status type: disorientation Qualified Code(s): R41.0 - Disorientation, unspecified Category: Medical Code(s): R41.82 - Altered mental status, unspecified (4) Dementia: Status: Acute Qualifiers: Dementia type: unspecified type Dementia severity: unspecified severity Dementia behavioral or psychological symptom: unspecified whether behavioral, psychotic, or mood disturbance or anxiety Qualified Code(s): F03.90 - Unspecified dementia, unspecified severity, without behavioral disturbance, psychotic disturbance, mood disturbance, and anxiety Category: Medical Code(s): F03.90 - Unspecified dementia, unspecified severity, without behavioral disturbance, psychotic disturbance, mood disturbance, and anxiety (5) Dehydration: Status: Acute Category: Medical Code(s): E86.0 - Dehydration (6) Calcification of coronary artery: Status: Acute Category: Medical Code(s): I25.10 - Atherosclerotic heart disease of [place] coronary artery without angina pectoris; I25.84 - Coronary atherosclerosis due to calcified coronary lesion (7) Diabetes mellitus, type 2: Status: Acute Qualifiers: Diabetes mellitus snf insulin use: without forge hand use Diabetes mellitus complication status: with other specified complication Qualified Code(s): E11.69 - Type 2 diabetes mellitus with other specified complication Category: Medical Code(s): E11.9 - Type 2 diabetes mellitus without complications (8) Dermatitis associated with moisture from urinary incontinence: Status: Acute Category: Medical Code(s): L25.8 - Unspecified contact dermatitis due to other agents; R32 - Unspecified urinary incontinence (9) Skin ulcer of buttock, limited to breakdown of skin: Status: Acute Category: Medical Code(s): L98.411 - 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 unknown baseline, at this time was brought in by EMS with concern that was found by family found living in deplorable conditions. -Sepsis without acute organ dysfunction, secondary to urinary tract infection with bilateral hydronephrosis: - improving Continue ceftriaxone IV 1 g every 24 hours - improving Urine culture pending -Calcification of the coronary artery disease present on the CTA -CAD -Hypertension Continue Plavix Continue Lipitor 80 mg nightly continue irbesartan 150 mg daily isosorbide 60 mg daily metoprolol 100 mg daily History of dementia: Continue donepezil 5 mg nightly History of diabetes: -A1c 9.4. sliding scale insulin with fingersticks ACHS. Will need oral regimen at discharge. 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
--- NOTE | 2024-01-17 15:40 | PC.NURSE ---
PT IS A&O, ABLE TO ANSWER QUESTIONS, HOWEVER IS VERY FORGETFUL AND REPETITIVE. TOLERATING RA WELL. HAS REMAINED IN BED THIS SHIFT, BEING TURNED Q2H. PT BATHED THIS SHIFT, BOTTOM CLEANED, DRIED, AND CREAM APPLIED. LAYERS OF SKIN SLOUGHING OFF. SLIGHT BLEEDING AND WHITE/GOEL DRAINAGE NOTED. PT DID HAVE A BM, AND DID NOT KNOW SHE WAS DOING IT. F/C REMAINS IN PLACE DRAINING YELLOW URINE WITH LARGE AMOUNTS OF SEDIMENT PRESENT. PT HAS HAD NO C/O OR NEEDS NOTED THUS FAR. PT IS VERY APPRECIATIVE. VSS. PATIENT'S GRANDDAUGHTER CAME TO VISIT TODAY, KIMBERLY MARIA. PATIENT WANTED HER TO BECOME THE PERSON TO NOTIFY IN HER CHART. PATIENT AND GRANDDAUGHTER ALSO SET UP A PASSWORD-LUISA. GRANDDAUGHTER ASKED TO SPEAK TO THIS NURSE PRIVATELY IN THE HALLWAY. SHE VOICED GREAT CONCERN FOR HER GRANDMOTHER; STATES THAT PATIENT HAS BEEN STAYING WITH HER SON FOR THE LAST MONTH OR SO. GRANDDAUGHTER STATES SHE DOESN'T BELIEVE THEY ARE TAKING CARE OF HER, TAKING HER TO APPOINTMENTS, OR GETTING HER MEDICATIONS. GRANDDAUGHTER STATES I AM CONCERNED THAT SHE IS BEING NEGLECTED, TAKEN ADVANTAGE OF, AND THAT THEY ONLY WANT HER MONTHLY CHECK. GRANDDAUGHTER STATES THAT SHE WOULD BE MORE THAN HAPPY TO ANSWER ANY AND ALL QUESTIONS, AND VERY MUCH WANTS HER GRANDMOTHER TO BE SOMEWHERE THAT WILL HELP TAKE CARE OF HER.
[2024-01-17 16:00] VITALS: BP 165/68; PULSE 74; RESP 18; O2SAT 97
[2024-01-17 16:36] LABS: POC Glucose,Bedside 158 (70-110)
[2024-01-17] MEDS: 0.9 % SODIUM CHLORIDE 1000ML 1,000 ML 50 ML IV (17:42)
[2024-01-17 19:47] VITALS: BP 154/67; PULSE 72; RESP 18; TEMP 37; O2SAT 96
[2024-01-17] MEDS: CEFTRIAXONE SODIUM 2 GM in 0.9 % SODIUM CHLORIDE 100 ML IV (20:23)
[2024-01-17] MEDS: DONEPEZIL 5MG TAB 5 MG PO (20:23)
[2024-01-17] MEDS: ATORVASTATIN 40MG TABLET 80 MG PO (20:24)
[2024-01-18 04:00] VITALS: BP 184/80; PULSE 76; RESP 18; TEMP 36.5; O2SAT 96; BMI 29.2
--- NOTE | 2024-01-18 05:04 | PC.NURSE ---
Addendum entered by Melisa Busch RN 01/18/24 05:17: Pt is unaware of when she has a bowel movement. Original Note: Pt is alert and oriented, intermittently confused. Pt Q2 turn. Remains room air, O2 sat >90%. Abdomen soft and nontender, bowel sounds active. Stage 2 to bottom spread up back and down legs, skin peeling off. Pt has had bowel movement, pt cleaned, barrier cream applied generously. Pt has had no complaints of pain other than when changing patient from bowel movement. Montesinos in place and draining. Call light in reach.
[2024-01-18 08:00] VITALS: BP 153/70; PULSE 68; RESP 19; TEMP 36.9; O2SAT 95
[2024-01-18] MEDS: ISOSORBIDE MONO 60MG TAB.ER.24H 60 MG PO (08:51)
[2024-01-18] MEDS: MAGNESIUM OXIDE 400MG TABLET 400 MG PO (08:51)
[2024-01-18] MEDS: POTASSIUM CHLORIDE 20MEQ TAB 40 MEQ PO ×2 (08:51→20:23)
[2024-01-18] MEDS: PANTOPRAZOLE 40MG TABLET 40 MG PO (08:51)
[2024-01-18] MEDS: METOPROLOL SUCCINATE XL 100MG TABLET 100 MG PO (08:51)
[2024-01-18] MEDS: CLOPIDOGREL 75MG TAB 75 MG PO (08:51)
[2024-01-18] MEDS: IRBESARTAN 150MG TAB 150 MG PO (08:51)
--- NOTE | 2024-01-18 09:16 | EXP.PHA.PN ---
Subjective *Date: 01/18/24 *Time: 09:16 Medical Exam Vital signs and Labs for Last 24 Hours: Vital Signs Temp Pulse Resp BP Pulse Ox O2 Del Method 01/18/24 08:00 98.4 F 68 19 153/70 H 95 Room Air 01/18/24 06:34 Room Air 01/18/24 05:00 Room Air 01/18/24 04:00 97.7 F 76 18 184/80 H 96 Room Air 01/18/24 03:00 Room Air 01/18/24 01:00 Room Air 01/17/24 22:42 Room Air 01/17/24 21:00 Room Air 01/17/24 20:00 Room Air 01/17/24 19:47 98.6 F 72 18 154/67 H 96 Room Air 01/17/24 18:31 Room Air 01/17/24 16:58 Room Air 01/17/24 16:00 74 18 165/68 H 97 Room Air 01/17/24 15:00 Room Air 01/17/24 12:43 Room Air 01/17/24 10:35 Room Air Intake and Output 01/17/24 01/18/24 01/18/24 23:59 07:59 15:59 Intake Total 360 / 1817 918 / 1188 270 / 1188 Output Total 600 / 1800 1600 / 1600 0 / 1600 Balance -240 / 17 -682 / -412 270 / -412 Intake: Intake, Oral Amount 360 / 1080 270 / 270 Intake, Total IV Amount 918 / 918 0.9 % Sodium Chloride 1000ML 1, 818 / 818 000 ml @ 50 mls/hr IV .Q20H MATILDE Rx#:[id number] Ceftriaxone Sodium 2 gm In 0.9 100 / 100 % Sodium Chloride 100 ml @ 200 mls/hr IV Q24H MATILDE Rx#:[id number] Output: Output, Urine Amount 600 / 1800 1600 / 1600 0 / 1600 Other: Number of Voids 0 Number of Unmeasured Voids 0 0 Number of Bowel Movements 1 1 Weight 58.967 kg Patient Weight 01/18/24 23:59 Weight 58.967 kg Laboratory Results - last 24 hr 01/17/24 11:07: POC Glucose 214 H 01/17/24 16:24: POC Glucose 158 H I & O for Labs for Last 24 Hours: Intake & Output 03/01/16/24 01/17/24 01/18/24 23:59 23:59 23:59 23:59 Intake Total 1820 / 1820 1817 / 1817 1188 / 1188 Output Total 1200 / 1800 900 / 900 1800 / 1800 1600 / 1600 Balance -1200 / -1800 920 / 920 -412 / -412 Weight 52.345 kg 53.4 kg 58.967 kg 58.967 kg Microbiology Reports for the Last 24 Hours: Microbiology 01/15/24 18:03 Urine,Catheterized Urine Culture - Final The patient's infection will respond to the chosen ABx?: Yes Is the patient receiving the right drug, dose, and route?: Yes Could a more targeted ABx be ordered?: No (WBC WNL, AFEBRILE, NOTED IMPROVEMENT.)
[2024-01-18] MEDS: humaLOG 100 UNITS/ML 3ML VIAL (SSI) SQ ×3 (11:08→20:23)
--- NOTE | 2024-01-18 11:10 | EXP.PN ---
Subjective *Date: 01/18/24 *Time: 11:10 Interval history: Patient was seen and evaluated at the bedside. No reported acute events overnight. Denies chest pain, shortness of breath, nausea, vomiting, abdominal pain Lying in bed comfortably Exam Data for Last 24 hours Vital signs and Labs for Last 24 Hours: Temp Pulse Resp BP Pulse Ox O2 Del Method 98.4 F 68 19 153/70 H 95 Room Air 01/18/24 08:00 01/18/24 08:00 01/18/24 08:00 01/18/24 08:00 01/18/24 08:00 01/18/24 11:00 Laboratory Results - last 24 hr 01/17/24 11:07: POC Glucose 214 H 01/17/24 16:24: POC Glucose 158 H I & O for Last 24 hours: Intake & Output 01/15/24 01/16/24 01/17/24 01/18/24 23:59 23:59 23:59 23:59 Intake Total 1820 / 1820 1817 / 1817 1188 / 1188 Output Total 1200 / 1800 900 / 900 1800 / 1800 1600 / 1600 Balance -1200 / -1800 920 / 920 17 / 17 -412 / -412 Weight 52.345 kg 53.4 kg 58.967 kg 58.967 kg Microbiology Reports for the Last 24 Hours: Microbiology 01/15/24 18:03 Urine,Catheterized Urine Culture - Final Constitutional Constitutional: no acute distress *Routine HEENT Exam Head: Present normocephalic Eye: Present EOMI and PERRL ENT: Present mucous membranes moist *Routine Neck Exam Neck: Present supple; Absent lymphadenopathy *Routine Respiratory Exam Respiratory: Present CTA bilaterally *Routine Cardiovascular Exam Cardiovascular: Present RRR *Routine Abdominal Exam Abdominal: Present soft and normoactive bowel sounds; Absent tenderness *Routine Extremities Exam Extremities: Absent cyanosis, clubbing or edema *Routine Skin Exam Skin: Present warm; Absent rash *Routine Neurological Exam Neurological: Present alert and oriented X3 Assessment and Plan *Assessment and plan (1) Sepsis without acute organ dysfunction: Status: Acute Qualifiers: Sepsis type: sepsis due to unspecified organism Qualified Code(s): A41.9 - Sepsis, unspecified organism Category: Medical Code(s): A41.9 - Sepsis, unspecified organism (2) Acute UTI: Status: Acute Category: Medical Code(s): N39.0 - Urinary tract infection, site not specified (3) Altered mental status: Status: Acute Qualifiers: Altered mental status type: disorientation Qualified Code(s): R41.0 - Disorientation, unspecified Category: Medical Code(s): R41.82 - Altered mental status, unspecified (4) Dementia: Status: Acute Qualifiers: Dementia type: unspecified type Dementia severity: unspecified severity Dementia behavioral or psychological symptom: unspecified whether behavioral, psychotic, or mood disturbance or anxiety Qualified Code(s): F03.90 - Unspecified dementia, unspecified severity, without behavioral disturbance, psychotic disturbance, mood disturbance, and anxiety Category: Medical Code(s): F03.90 - Unspecified dementia, unspecified severity, without behavioral disturbance, psychotic disturbance, mood disturbance, and anxiety (5) Dehydration: Status: Acute Category: Medical Code(s): E86.0 - Dehydration (6) Calcification of coronary artery: Status: Acute Category: Medical Code(s): I25.10 - Atherosclerotic heart disease of [place] coronary artery without angina pectoris; I25.84 - Coronary atherosclerosis due to calcified coronary lesion (7) Diabetes mellitus, type 2: Status: Acute Qualifiers: Diabetes mellitus senior living insulin use: without buttermaker continuous churn use Diabetes mellitus complication status: with other specified complication Qualified Code(s): E11.69 - Type 2 diabetes mellitus with other specified complication Category: Medical Code(s): E11.9 - Type 2 diabetes mellitus without complications (8) Dermatitis associated with moisture from urinary incontinence: Status: Acute Category: Medical Code(s): L25.8 - Unspecified contact dermatitis due to other agents; R32 - Unspecified urinary incontinence (9) Skin ulcer of buttock, limited to breakdown of skin: Status: Acute Category: Medical Code(s): L98.411 - 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 unknown baseline, at this time was brought in by EMS with concern that was found by family found living in deplorable conditions. Sepsis without acute organ dysfunction, secondary to UTI with bilateral hydronephrosis: Continue ceftriaxone IV 1 g every 24 hours - improving Urine culture pending -Calcification of the coronary artery disease present on the CTA -CAD -Hypertension Continue Plavix Continue Lipitor 80 mg nightly continue irbesartan 150 mg daily isosorbide 60 mg daily metoprolol 100 mg daily History of dementia: Continue donepezil 5 mg nightly History of diabetes: -A1c 9.4. sliding scale insulin with fingersticks ACHS. 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
[2024-01-18 11:25] LABS: POC Glucose,Bedside 231 (70-110)
[2024-01-18 16:00] VITALS: BP 178/85; PULSE 70; RESP 18; O2SAT 97
[2024-01-18 16:55] LABS: POC Glucose,Bedside 300 (70-110)
--- NOTE | 2024-01-18 17:35 | PC.NURSE ---
PT A&OX4 T/O SHIFT, BUT CONTINUES TO HAVE INTERMITTENT CONFUSION. PT WAS A X2 ASSIST UP TO THE CHAIR, WHICH SHE SAT IN A GOOD AMOUNT OF THE DAY. PT HAD F/C REMOVED EARLIER IN THE SHIFT. DID NOT VOID SINCE THEN. ASSESSED PT, BLADDER FIRM AND DISCOMFORT NOTED. ORDER RECEIVED TO [facility]OND F/C. PT TOLERATED WELL. LIGHT YELLOW URINE WITH SOME SEDIMENT PRESENT. 800ML OUT AT INSERTION. PT HAS ALSO REMAINED INCONTINENT OF BOWEL WITH MULTIPLE BMS NOTED. PT DOES NOT KNOW WHEN SHE HAS A BM. PT KEPT CLEAN AND DRY POSSIBLE, BARRIER CREAM APPLIED MULTIPLE TIMES, AND PT TURNED Q2H. PT HAS A GOOD APPETITE AND HAS BEEN DRINKING. NO NEEDS OR C/O NOTED THUS FAR. VSS.
[2024-01-18 20:00] VITALS: BP 212/86; PULSE 70; RESP 20; TEMP 37.1; O2SAT 97
[2024-01-18] MEDS: cloNIDine 0.1MG TABLET 0.100000000000000006 MG PO (20:23)
[2024-01-18] MEDS: ACETAMINOPHEN 325MG TAB 650 MG PO (20:23)
[2024-01-18] MEDS: CEFTRIAXONE SODIUM 2 GM in 0.9 % SODIUM CHLORIDE 100 ML IV (20:23)
[2024-01-18] MEDS: ATORVASTATIN 40MG TABLET 80 MG PO (20:23)
[2024-01-18] MEDS: DONEPEZIL 5MG TAB 5 MG PO (20:23)
[2024-01-19 04:00] VITALS: BP 131/75; PULSE 60; RESP 18; TEMP 36.7; O2SAT 96; BMI 27.6
--- NOTE | 2024-01-19 04:49 | PC.NURSE ---
Pt is alert and oriented, intermittent confusion. Stage 2 to bottom. Cleaned and applied barrier cream as needed. Pt has complained of pain one time, treated per mar. Pt has voiced no other complaints. Remains on room air. Abdomen soft and nontender. Pt does not feel sensation of bowel movement. Montesinos in place and draining. Call light in reach.
[2024-01-19] MEDS: humaLOG 100 UNITS/ML 3ML VIAL (SSI) SQ ×2 (05:27→11:04)
[2024-01-19 07:06] LABS: Basophils # 0.1 K/mm3 (0-0.2); Basophils % 1.1 % (0.1-2.0); Eosinophils # 0.3 K/mm3 (0.0-0.4); Eosinophils % 3.5 % (0.1-12.0); Hematocrit 39.4 % (37.0-47.0); Hemoglobin 12.7 g/dL (12.2-16.2); Lymphocytes # 2.3 K/mm3 (0.7-4.5); Lymphocytes % 27.2 % (10-50); Mean Corpuscular HGB Conc 32.2 g/dL (31.8-35.4); Mean Corpuscular Volume 90.2 fl (81-99); Mean Platelet Volume 8.3 fl (7.4-10.4); Monocytes # 0.4 K/mm3 (0.1-1.0); Monocytes % 4.5 % (1.7-9.3); Neutrophils # 5.4 K/mm3 (1.8-7.8); Neutrophils % 63.6 % (37.0-80.0); Platelet Count 436 K/mm3 (142-424); Red Blood Count 4.37 M/mm3 (4.20-5.40); Red Cell Distribution Width 13.3 % (11.5-17.5); White Blood Count 8.5 K/mm3 (4.8-10.8)
[2024-01-19 07:16] LABS: Anion Gap 7.3 mEq/L (5-15); Blood Urea Nitrogen 12 mg/dl (7-17); Calcium 8.9 mg/dl (8.4-10.2); Carbon Dioxide 27 mmol/L (22.0-30.0); Chloride 104 mmol/L (98-107); Creatinine Clearance Estimated 45 mL/min (50-200); Estimated Glomerular Filt Rate 55 ml/min (>60); GFR (African American) 66 ML/MIN (>60); Glucose 152 mg/dl (74-100); Sodium 132 mmol/L (136-145)
--- NOTE | 2024-01-19 07:38 | EXP.DC.SUM ---
General Admission date:: 01/15/24 Discharge date: 01/19/24 HPI HPI HPI: This is a 73-year-old female with apparently PMHx of HTN, CAD on plavix, questionable diabetes, dementia. unknown baseline, at this time was brought in by EMS with concern that was found by family found living in deplorable conditions. patient is alert to person only, poor historian and does not seems to be aware of situations. History obtained by chart review, ED documentation and EMS report. According to [facility] who brought the patient in, the patient has been reportedly living in a camper without running water or electricity for the last 5 months. Family came and found her stuck to the blankets that she was lying on in bed with a lot of wounds to her buttocks and perineal region. She had been incontinent of urine on herself. She is only oriented to person and place but not time or situation. She states that she is having some pain in her bottom where the wounds are but denies any other concerns or complaints at this time. She states she is not really sure why she is here. Family has not yet arrived. Admitted for further treatment and management. Hospital Course Hospital Course Hospital Course: 73-year-old female with apparently PMHx of HTN, CAD on plavix, questionable diabetes, dementia. unknown baseline, at this time was brought in by EMS with concern that was found by family found living in deplorable conditions. Admitted for further workup and management. Needs rehab. Stable to discharge to rehab. Problems addressed as follows: - Sepsis without acute organ dysfunction, secondary to UTI with bilateral hydronephrosis: Patient initiated on ceftriaxone empirically. Urine culture was obtained. Grew less than 10,000 CFU's. Has received 5 doses total of ceftriaxone. No further indication for antibiotic treatment. White cell count normalized rapidly and has been normal since 01/15. Recommend repeat CBC, CMP, magnesium in 1 week. Will discharge patient with Montesinos given her urinary retention and hydronephrosis on initial imaging. Would benefit from bladder training at nursing facility and potential follow-up with urology when stable to discharge from rehab. Urology referral has not been placed at this time. Potassium disturbances -Patient initially had hypokalemia with potassium 3.1. Was initiated on oral therapy. Responded briskly with elevation to 6. Improved with diuresis x 1. Holding supplementation at this time. Potassium 5.4 on day of discharge. EKG with no changes. Low concern for persistent abnormality, consistent with oversupplementation. Recommend repeat labs in 1 to 2 days to monitor for resolution and normalization of potassium level. -Calcification of the coronary artery disease present on the CTA -CAD -Hypertension Continued home medications for chronic conditions including Plavix, Lipitor 80 mg nightly, irbesartan 150 mg daily, isosorbide 60 mg daily, metoprolol 100 mg daily History of dementia: Continue donepezil 5 mg nightly History of diabetes: -A1c 9.4. Continue glimepiride 4 mg twice daily, initiate metformin 500 mg twice daily. Recommend monitoring fingerstick glucose in the morning and at bedtime. If remains elevated, may necessitate sliding scale insulin per facility protocol -Moisture associated dermatitis, likely secondary to urinary incontinence Montesinos catheter was inserted to assist skin healing as always for urinary retention. Wound care consulted. Barrier cream in place. Recommend wound care consult when arrives to nursing facility. Total time spent on discharge 36 minutes in counseling, documentation, chart review, and direct care with patient. Exam Data for Last 24 hours Vital signs and Labs for Last 24 Hours: Temp Pulse Resp BP Pulse Ox O2 Del Method 98.1 F 60 18 131/75 96 Room Air 01/19/24 04:00 01/19/24 04:00 01/19/24 04:00 01/19/24 04:00 01/19/24 04:00 01/19/24 06:49 Laboratory Results - last 24 hr 01/18/24 11:02: POC Glucose 231 H 01/18/24 16:30: POC Glucose 300 H 01/19/24 06:41: WBC 8.5, RBC 4.37, Hgb 12.7, Hct 39.4, MCV 90.2, MCH 29.0, MCHC 32.2, RDW 13.3, Plt Count 436 H, MPV 8.3, Neut % (Auto) 63.6, Lymph % (Auto) 27.2, [place] % (Auto) 4.5, Eos % (Auto) 3.5, Baso % (Auto) 1.1, Neut # (Auto) 5.4, Lymph # (Auto) 2.3, [place] # (Auto) 0.4, Eos # (Auto) 0.3, Baso # (Auto) 0.1 I & O for Last 24 hours: Intake & Output 01/16/24 01/17/24 01/18/24 01/19/24 23:59 23:59 23:59 23:59 Intake Total 1820 / 1820 1817 / 1817 1908 / 1908 Output Total 900 / 900 1800 / 1800 2400 / 3200 800 / 800 Balance 920 / 920 17 / -492 / -1292 -800 / -800 Weight 53.4 kg 58.967 kg 58.967 kg 55.61 kg Microbiology Reports for the Last 24 Hours: Microbiology 01/15/24 18:03 Urine,Catheterized Urine Culture - Final Constitutional Constitutional: no acute distress, average body habitus, chronically ill appearing, disheveled and cooperative *Routine HEENT Exam Head: Present normocephalic Eye: Present EOMI and PERRL ENT: Present mucous membranes moist *Routine Neck Exam Neck: Present supple; Absent lymphadenopathy *Routine Respiratory Exam Respiratory: Present CTA bilaterally; Absent rhonchi, wheezes or crackles *Routine Cardiovascular Exam Cardiovascular: Present RRR *Routine Abdominal Exam Abdominal: Present soft and normoactive bowel sounds; Absent tenderness *Routine Rectal Exam Patient deferred: visual exam *Routine Exam Patient deferred: external exam *Routine Extremities Exam Extremities: Absent cyanosis, clubbing or edema *Routine Skin Exam Skin: Present warm; Absent rash Comments: Breakdown on bottom *Routine Neurological Exam Neurological: Present alert, oriented X3 and moving all extremities; Absent altered mental status Results Data Completed and Pending Labs on day of discharge: Labs from last 24 hours 01/19/24 01/18/24 01/18/24 06:41 16:30 11:02 WBC 8.5 RBC 4.37 Hgb 12.7 Hct 39.4 MCV 90.2 MCH 29.0 MCHC 32.2 RDW 13.3 Plt Count 436 H MPV 8.3 Neut % (Auto) 63.6 Lymph % (Auto) 27.2 [place] % (Auto) 4.5 Eos % (Auto) 3.5 Baso % (Auto) 1.1 Neut # (Auto) 5.4 Lymph # (Auto) 2.3 [place] # (Auto) 0.4 Eos # (Auto) 0.3 Baso # (Auto) 0.1 POC Glucose 300 H 231 H DS: Diagnosis Discharge Diagnosis (1) Sepsis without acute organ dysfunction: Status: Acute Code(s): A41.9 - Sepsis, unspecified organism Qualifiers: Sepsis type: sepsis due to unspecified organism Qualified Code(s): A41.9 - Sepsis, unspecified organism (2) Acute UTI: Status: Acute Code(s): N39.0 - Urinary tract infection, site not specified (3) Altered mental status: Status: Acute Code(s): R41.82 - Altered mental status, unspecified Qualifiers: Altered mental status type: disorientation Qualified Code(s): R41.0 - Disorientation, unspecified (4) Dementia: Status: Acute Code(s): F03.90 - Unspecified dementia, unspecified severity, without behavioral disturbance, psychotic disturbance, mood disturbance, and anxiety Qualifiers: Dementia behavioral or psychological symptom: unspecified whether behavioral, psychotic, or mood disturbance or anxiety Dementia severity: unspecified severity Dementia type: unspecified type Qualified Code(s): F03.90 - Unspecified dementia, unspecified severity, without behavioral disturbance, psychotic disturbance, mood disturbance, and anxiety (5) Dehydration: Status: Acute Code(s): E86.0 - Dehydration (6) Calcification of coronary artery: Status: Acute Code(s): I25.10 - Atherosclerotic heart disease of [place] coronary artery without angina pectoris; I25.84 - Coronary atherosclerosis due to calcified coronary lesion (7) Diabetes mellitus, type 2: Status: Acute Code(s): E11.9 - Type 2 diabetes mellitus without complications Qualifiers: Diabetes mellitus complication status: with other specified complication Diabetes mellitus salvage determiner insulin use: without salvage determiner use Qualified Code(s): E11.69 - Type 2 diabetes mellitus with other specified complication (8) Dermatitis associated with moisture from urinary incontinence: Status: Acute Code(s): L25.8 - Unspecified contact dermatitis due to other agents; R32 - Unspecified urinary incontinence (9) Skin ulcer of buttock, limited to breakdown of skin: Status: Acute Code(s): L98.411 - 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 (10) Unable to care for self: Status: Acute Code(s): Z78.9 - Other specified health status Meds Home Medications and Allergies Home Medications Medication Instructions Recorded Confirmed Type atorvastatin 80 mg tablet 80 mg PO DAILY Cholesterol 01/16/24 01/16/24 History clopidogrel 75 mg tablet 75 mg PO DAILY Platelet Inhibitor 01/16/24 01/16/24 History donepezil 5 mg tablet 5 mg PO HS Memory 01/16/24 01/16/24 History glimepiride 4 mg tablet 4 mg PO BID Diabetes 01/16/24 01/16/24 History isosorbide mononitrate 60 mg 60 mg PO DAILY High Blood Pressure 01/16/24 01/16/24 History tablet,extended release 24 hr metoprolol succinate 100 mg 100 mg PO DAILY High Blood Pressure 01/16/24 01/16/24 History tablet,extended release 24 hr irbesartan 150 mg tablet 300 mg (2 x 150 mg) PO DAILY 30 01/18/24 Rx days #60 tabs metformin 500 mg tablet 500 mg PO BID 30 days #60 tabs 01/19/24 Rx nicotine 21 mg/24 hr daily 21 mg transdermal DAILYP PRN 01/19/24 Rx transdermal patch Nicotine Cravings #0 ea pantoprazole 40 mg tablet,delayed 40 mg PO DAILY #0 tabs 01/19/24 Rx release New Prescriptions to Start Prescriptions: Salvatore Gramajo Allergies Allergy/AdvReac Type Severity Reaction Status Date / Time Unable to Assess Allergy Verified 01/15/24 18:26 Discharge Plan Disposition Patient Disposition: [facility] Condition: Fair Discharge Order Discharge Orders: Discharge Order (Routine); Ordered 01/19/24 Ordered By: Salvatore Fong Follow up Plan Prescriptions/Medication Reconciliation: New irbesartan 150 mg Tablet 300 mg PO DAILY 30 Days Qty: 60 0RF pantoprazole 40 mg Tablet,Delayed Release (Dr/Ec) 40 mg PO DAILY Qty: 0 0RF nicotine 21 mg/24 hr Patch 24 Hour 21 mg transdermal DAILYP PRN (Reason: Nicotine Cravings) Qty: 0 0RF metformin 500 mg tablet 500 mg PO BID 30 Days Qty: 60 0RF Continued atorvastatin 80 mg tablet 80 mg PO DAILY Patient Comments: TAKE 1 TABLET 1 TIME EACH DAY donepezil 5 mg tablet 5 mg PO HS Patient Comments: TAKE 1 TABLET 1 TIME EACH DAY AT BEDTIME metoprolol succinate 100 mg tablet extended release 24 hr 100 mg PO DAILY Patient Comments: TAKE 1 TABLET 1 TIME EACH DAY clopidogrel 75 mg tablet 75 mg PO DAILY Patient Comments: TAKE 1 TABLET 1 TIME EACH DAY isosorbide mononitrate 60 mg tablet extended release 24 hr 60 mg PO DAILY Patient Comments: TAKE 1 TABLET 1 TIME EACH DAY IN THE MORNING glimepiride 4 mg tablet 4 mg PO BID Patient Comments: TAKE 1 TABLET 2 TIMES EACH DAY Discontinued losartan 100 mg tablet 100 mg PO DAILY Patient Comments: TAKE 1 TABLET 1 TIME EACH DAY Problem Reconciliation Problems Reviewed?: Yes Patient Discharge Instructions ACTIVITY: Continue current activity DIET: continue same diet Patient Instructions: DI for Pressure Injuries, DI for Urinary Tract Infection (UTI), DI for Hyperkalemia, DI for Sepsis -- Adult, Catheter-Associated Urinary Tract Infection Providers Primary Care Provider: Provider,Referral Admit Provider: Salvatore Fong Attending Provider: Salvatore Fong
[2024-01-19 07:48] LABS: Potassium 6.3 mmoL/L (3.5-5.1)
--- NOTE | 2024-01-19 07:55 | ECG_ITS ---
APPROVED REPORT Exam: Resting ECG HR:64 bpm ECG Measurements Heart Rate [address] 162 P 35 QRSd 77 QRS 43 QT 429 T 67 QTc 438 Conclusion SINUS RHYTHM SEPTAL MYOCARDIAL INFARCTION , OF INDETERMINATE AGE [40+ ms Q WAVE IN V1/V2] ABNORMAL ECG UNCONFIRMED REPORT Electronically signed by : Dyao De Luna MD 01/19/2024 17:58:21
[2024-01-19 08:21] VITALS: BP 139/64; PULSE 64; RESP 17; TEMP 36.8; O2SAT 96
[2024-01-19] MEDS: MAGNESIUM OXIDE 400MG TABLET 400 MG PO (08:55)
[2024-01-19] MEDS: IRBESARTAN 150MG TAB 150 MG PO (08:55)
[2024-01-19] MEDS: 0.9 % SODIUM CHLORIDE 1000ML 500 ML 250 ML IV (08:55)
[2024-01-19 08:56] LABS: Chloride 105 mmol/L (98-107); Sodium 133 mmol/L (136-145)
[2024-01-19] MEDS: ISOSORBIDE MONO 60MG TAB.ER.24H 60 MG PO (08:56)
[2024-01-19] MEDS: FUROSEMIDE 40MG/4ML VIAL 40 MG IV (08:56)
[2024-01-19] MEDS: CLOPIDOGREL 75MG TAB 75 MG PO (08:56)
[2024-01-19] MEDS: METOPROLOL SUCCINATE XL 100MG TABLET 100 MG PO (08:56)
[2024-01-19] MEDS: PANTOPRAZOLE 40MG TABLET 40 MG PO (08:56)
[2024-01-19 08:59] LABS: Blood Urea Nitrogen 12 mg/dl (7-17); Calcium 8.9 mg/dl (8.4-10.2); Carbon Dioxide 27 mmol/L (22.0-30.0); Creatinine Clearance Estimated 45 mL/min (50-200); Estimated Glomerular Filt Rate 55 ml/min (>60); GFR (African American) 66 ML/MIN (>60); Glucose 191 mg/dl (74-100)
[2024-01-19 11:09] LABS: POC Glucose,Bedside 190 (70-110)
[2024-01-19 14:45] LABS: Chloride 104 mmol/L (98-107); Sodium 134 mmol/L (136-145)
[2024-01-19 14:46] LABS: Potassium 5.4 mmoL/L (3.5-5.1)
[2024-01-19 14:48] LABS: Blood Urea Nitrogen 14 mg/dl (7-17); Creatinine Clearance Estimated 41 mL/min (50-200); Estimated Glomerular Filt Rate 49 ml/min (>60); GFR (African American) 59 ML/MIN (>60)
[2024-01-19 14:49] LABS: Anion Gap 6.4 mEq/L (5-15); Calcium 8.6 mg/dl (8.4-10.2); Carbon Dioxide 29 mmol/L (22.0-30.0); Glucose 179 mg/dl (74-100)
[2024-01-19] MEDS: CEFTRIAXONE SODIUM 2 GM in 0.9 % SODIUM CHLORIDE 100 ML IV (15:51)
[2024-01-19 18:25] LABS: POC Glucose,Bedside 263 (70-110)
== END 2024-01-19 18:50 | DRG 872 ==
LOC: ER 18:56 → 2ND 20:45
PROVIDERS: Internal Medicine; Nurse Practitioner Family; Admitting Provider Internal Medicine Adolescent Medicine; Emergency Provider Emergency Medicine; Visit Provider Internal Medicine Adolescent Medicine
DX: A41.9 Sepsis, unspecified organism (principal); N39.0 Urinary tract infection, site not specified; N13.30 Unspecified hydronephrosis; E86.0 Dehydration; I25.10 Atherosclerotic heart disease of native coronary artery without angina pectoris; I25.84 Coronary atherosclerosis due to calcified coronary lesion; E11.69 Type 2 diabetes mellitus with other specified complication; L25.8 Unspecified contact dermatitis due to other agents; R32 Unspecified urinary incontinence; L98.411 Non-pressure chronic ulcer of buttock limited to breakdown of skin; F03.90 Unspecified dementia, unspecified severity, without behavioral disturbance, psychotic disturbance, mood disturbance, and anxiety; E87.6 Hypokalemia; I10 Essential (primary) hypertension; Z86.12 Personal history of poliomyelitis
CPT/HCPCS: 36415; 51702; 70450; 71045; 71275; 74177; 80048; 80053; 80307; 81001; 82140; 82550; 82803; 82962; 83036; 83605; 83690; 83735; 83880; 84145; 84436; 84443; 84484; 85007; 85025; 85378; 86140; 87040; 87086; 93005; 97110; 97162; 97166; 97530; 99285; J0131; J0696; J2405; J3475; Q9967